=== PATIENT | female | born 1955 | race Caucasian/White ===

== ENCOUNTER 2018-11-19 15:11 | Inpatient (IN) | payer MEDICARE, BC ==
[~2018-11-19] VITALS: Ht 147.3 cm; Wt 69.0 kg
--- OUTSIDE RECORDS SUMMARY | 2018-11-19 15:15 | XMS REPORT ---
Author Author [facility] Address Unknown Phone Unavailable Care Team Providers Care Crate Opener Name Role Phone Unavailable Unavailable Payers Payer Name Policy Type Policy Number Effective Date Expiration Date Problems This patient has no known problems. Allergies, Adverse Reactions, Alerts Allergy Name Allergy Type Status Severity Reaction(s) Onset Date Inactive Date Treating Clinician Comments No Known Allergies DA Active U 2018-06-30 00:00:00 Salicylates DA Active MN 2017-12-05 00:00:00 NSAIDS (Non-Steroidal Anti-Inflamma DA Active MN 2017-12-05 00:00:00 aspirin DA Active MN 2017-12-05 00:00:00 Pyrazoles DA Active U 2017-12-04 00:00:00 Medications This patient has no known medications. Results Test Description Test Time Test Comments Text Results Atomic Results Result Comments INTERVERTEBRAL DISC 2018-07-05 14:17:00 RUN DATE: 07/05/18 [place] - Lab PAGE 1 RUN TIME: 1418 Specimen Inquiry RUN USER: INTERFACE PATIENT: CHARY DOZIER LOC: ERIN #: [id number] AGE/SX: 63/F [facility] RE07[facility]03[facility]18[facility] DR: North Salas MD : 51 BED: A DIS: 07/04/18 STATUS: DIS Minal TLOC: SPEC #: [id number] RECD: 07/04/18 STATUS: HUNTER REQ #: [id number] NAGA: 07/03/18 DR: North Salas MD ENTERED: 07/04/18 SP TYPE: INT DISC OTHR DR: Mj Vizcarra MD ORDERED: GROSS COPIES TO: Mj Vizcarra MD [address] [place] [address] North Salas MD [address] [address] PROCEDURES: GROSS (07/05/18-1322) TISSUES: CERVICAL VERTEBRA, NOS - DISC CLINICAL HISTORY COLLECTION DATE: 07/03/2018 C3-4; C4-5; C5-6 SPONDYLOSIS AND SPINAL STENOSIS FINAL DIAGNOSIS Intervertebral disc, C3-C4, C4-C5, C5-C6, discectomy: FIBROCARTILAGINOUS DEGENERATION NO DISCITIS, VASCULAR PROLIFERATION OR MALIGNANCY IDENTIFIED FA/greer D [id number], 45580 MACROSCOPIC The specimen is received in formalin, labeled with the patient's name, identified as "cervical disc", and consists of multiple portions of ross white soft and rubbery tissue and minute portions of bone measuring 3.5 X 2.0 X 1.0 cm in aggregate. Rope Twisting Machine Operator of section is submitted in a single cassette after light decalcification. CONTINUED ON NEXT PAGE RUN DATE: 07/05/18 [facility] PAGE 2 RUN TIME: 1417 Specimen Inquiry RUN USER: INTERFACE SPEC #: [id number] PATIENT: CHARY DOZIER #[id number] (Continued) MACROSCOPIC (Continued) GROSS PERFORMED AT [facility] [address] [facility], [place] [address] [phone])[phone] PERFORMING SITE Diagnosis performed at: [facility] [address] [facility], [place] [address] --------- Signed SIGNATURE ON FILE Joseph Hightower MD 07/05/18 1417 END OF REPORT - XR C-SPINE 2-3 VIEWS 2018-07-04 13:23:00 FAX: Mj Newell MD [phone] [place]: St: DIS FAX: Y North Salas MD [phone] Name: CHARY DOZIER [facility] : 1955 Age/S: 63/F [address] [facility] Unit #: [id number] Loc: V.5010 [place] [address] Phys: North Salas MD Acct: [id number] Dis Date: [id number] Status: DIS IN PHONE #: [phone] Exam Date: 07/04/2018 1013 FAX #: [phone] Reason: Status post fusion EXAMS: CPT CODE: [id number] XR C-SPINE 2-3 VIEWS 03574 HISTORY: Post cervical fusion. COMPARISON: None available. Cervical spine series, 4 views. Cervical fusion from C3 through C6 with metallic internal fixation plate and bone. C5 and C6 are partially obscured by patient's shoulder. Prevertebral soft tissue swelling. Drainage catheter seen anteriorly. Vertebral body heights are maintained. Narrowed uncovertebral joints. Lung apices are clear. IMPRESSION: Cervical fusion in good anatomic alignment from C3 through C6. Vertebral body heights are maintained. at 1323 Reported and signed by: Irving Chawla M.D. CC: Mj Vizcarra MD; North Salas MD Technologist: RT KIM(Consuelo) Trnscrd Date/Time/By: 07/04/2018 (4188) : By: [email or web address] Orig Print D/T: S: 07/04/2018 (5274) PAGE 1 Signed Report PROTHROMBIN TIME 2018-06-30 15:35:00 PROTHROMBIN TIME PATIENT (test code=PTP) 11.3 seconds 9.0-14.0 INTERNATIONAL NORMAL RATIO (test code=INR) 0.9 0.8-1.2 The therapeutic range for oral anticoagulant therapy formost indications is an international normalized ratio (INR)of between 2.0 and 3.0. The recommended therapeutic INRrange for various clinical situations is listed below: Clinical Situation INR range Pulmonary e mbolism treatment (2.0-3.0)Venous thrombosis treatmentVenous thrombosis prophylaxis (high risk surgery)Prevention of systemic embolism from: Acute myocardial infarction Valvular heart disease Atrial fibrillation Mechanical prosthetic heart valves (2.5-3.5) THROMBOPLASTIN TIME [id number] 15:35:00* Test Item Value Reference Range Comments THROMBOPLASTIN TIME PARTIAL (test code=PTT) 32.3 seconds 25.0-36.5 BASIC METABOLIC [id number] 15:23:00* Test Item Value Reference Range Comments SODIUM (test code=NA) 140 mmol/L 136-145 POTASSIUM (test code=K) 4.4 mmol/L 3.5-5.1 CHLORIDE (test code=CL) 108.0 mmol/L 98-107 CARBON DIOXIDE (test code=CO2) 27.0 mmol/L 21-32 ANION GAP (test code=GAP) 9.4 10-20 GLUCOSE (test code=GLU) 94 mg/dL 74-106 BLOOD UREA NITROGEN (test code=BUN) 17 mg/dL 7-18 GLOMERULAR FILTRATION RATE (test code=GFR) > 60 mL/min >=60 Estimated GFR by using Modified MDRD formula.Chronic kidney disease is defined as either kidney damageor GFR <60 mL/min/1.73 m2 for >3 months. CREATININE (test code=CREAT) 0.80 mg/dL 0.55-1.02 Note change in reference range due to change in reagent. BUN/CREATININE RATIO (test code=BUN/CREA) 22.4 10-20 CALCIUM (test code=CA) 9.3 mg/dL 8.5-10.1 CBC W/AUTO [id number] 15:09:00* Test Item Value Reference Range Comments WHITE BLOOD CELL (test code=WBC) 9.4 K/mm3 4.5-12.5 RED BLOOD CELL (test code=RBC) 4.71 mill/mm3 3.7-5.2 HEMOGLOBIN (test code=HGB) 13.7 gram/dL 11.5-15.5 HEMATOCRIT (test code=HCT) 44.3 % 36.0-46.0 MEAN CELL VOLUME (test code=MCV) 94.1 fL 80-98 MEAN CELL HGB (test code=MCH) 29.1 picogram 27.0-33.0 MEAN CELL HGB CONCETRATION (test code=MCHC) 30.9 gram/dL 33.0-36.0 RED CELL DISTRIBUTION WIDTH (test code=RDW) 14.3 % 11.6-16.2 RED CELL DISTRIBUTION WIDTH SD (test code=RDW-SD) 49.7 fL 37.0-51.0 PLATELET COUNT (test code=PLT) 388 K/mm3 150-450 MEAN PLATELET VOLUME (test code=MPV) 10.3 fL 6.7-11.0 NEUTROPHIL % (test code=NT%) 55.9 % 39.0-69.0 IMMATURE GRANULOCYTE % (test code=IG%) 0.3 % 0.0-5.0 LYMPHOCYTE % (test code=LY%) 30.8 % 25.0-55.0 MONOCYTE % (test code=MO%) 9.3 % 0.0-10.0 EOSINOPHIL % (test code=EO%) 2.8 % 0.0-5.0 BASOPHIL % (test code=BA%) 0.9 % 0.0-1.0 NUCLEATED RBC % (test code=NRBC%) 0.0 % 0-0 NEUTROPHIL # (test code=NT#) 5.24 K/mm3 1.8-7.7 IMMATURE GRANULOCYTE # (test code=IG#) 0.03 x10 3/uL 0-0.03 LYMPHOCYTE # (test code=LY#) 2.88 K/mm3 1.0-5.0 MONOCYTE # (test code=MO#) 0.87 K/mm3 0-0.8 EOSINOPHIL # (test code=EO#) 0.26 K/mm3 0.0-0.5 BASOPHIL # (test code=BA#) 0.08 K/mm3 0.0-0.2 NUCLEATED RBC # (test code=NRBC#) 0.00 K/mm3 0.0-0.1 MANUAL DIFF REQUIRED (test code=MDIFF) NO - XR CHEST 2 [id number] 15:03:00 FAX: Mj Newell MD [phone] [place]: O St: PRE FAX: North Schwartz MD [phone] Name: CHARY DOZIER [facility] : 1955 Age/S: 63/F [address] Unit #: [id number] Loc: RACHEL Murillo [address] Phys: North Salas MD Acct: [id number] Dis Date: Status: PRE IN PHONE #: [phone] Exam Date: 06/30/2018 1433 FAX #: [phone] Reason: PRE OP EXAMS: CPT CODE: [id number] XR CHEST 2 V 42125 EXAM: Chest x-ray, 2 views; INFORMATION: Cervical spondylosis and spinal stenosis; preop; FINDINGS: Minimal platelike atelectasis above the left costophrenic angle; otherwise, lungs are clear; no infiltrates, no edema; no effusions, no pneumothorax. Unremarkable cardiac mediastinal silhouette. There is significant S-shaped scoliosis of the thoracolumbar spine. Small screws are seen in the left proximal humerus, probably secondary to rotator cuff surgery. IMPRESSION: No evidence of active cardiopulmonary disease. at 1503 Reported and signed by: Kaden Vaughn M.D. CC: Mj Vizcarra MD; North Weiss MD Technologist: Lilia Dickson Trnscrd Date/Time/By: 06/30/2018 (1500) : By: CarolGRW Orig Print D/T: S: 06/30/2018 (0106) PAGE 1 Signed Report
[2018-11-19] MEDS ORDERED: SODIUM CHLORIDE 0.9% 1000ML 2,000 ML ONE (15:22)
[2018-11-19] MEDS ORDERED: ONDANSETRON HCL INJ 2MG/ML 2ML 2 MG/ML VIAL ONE (15:23)
[2018-11-19 15:33] LABS: BASOPHILS # (AUTO) 0.1 (0.0-0.1); BASOPHILS % 0.4 % (0.0-1.0); EOSINOPHILS # (AUTO) 0.1 (0.0-0.4); EOSINOPHILS % 0.8 % (0.0-6.0); HEMATOCRIT 38.3 % (34.2-44.1); HEMOGLOBIN 12.6 g/dL (12.0-16.0); LYMPHOCYTES # (AUTO) 2.4 (1.0-3.2); LYMPHOCYTES % 13.9 % (18.0-39.1); MEAN CORPUSCULAR HEMOGLOBIN 28.8 pg (28-32); MEAN CORPUSCULAR HGB CONC 32.9 g/dL (31-35); MEAN CORPUSCULAR VOLUME 87.6 fL (81-99); MONOCYTES # (AUTO) 1.1 (0.2-0.8); MONOCYTES % 6.5 % (4.4-11.3); NEUTROPHILS # (AUTO) 13.5 (2.1-6.9); NEUTROPHILS % 77.7 % (38.7-80.0); PLATELET COUNT 320 x10e3/uL (140-360); RED BLOOD COUNT 4.37 x10e6/uL (3.6-5.1); RED CELL DISTRIBUTION WIDTH 14.6 % (11.7-14.4)
[2018-11-19] MEDS ORDERED: SODIUM CHLORIDE 0.9% 1000ML 1,000 ML ONE (15:49)
[2018-11-19 15:54] LABS: ALBUMIN 3.4 g/dL (3.5-5.0); ANION GAP 16.3 mmol/L (8-16); CALCIUM 9.2 mg/dL (8.4-10.2); CREATININE, SERUM 2.86 mg/dL (0.57-1.11); MAGNESIUM 2.1 MG/DL (1.3-2.1); PHOSPHORUS 5.3 MG/DL (2.3-4.7); POTASSIUM 4.3 mmol/L (3.5-5.1)
[2018-11-19] MEDS ORDERED: SODIUM CHLORIDE 0.9% 1000ML 1,000 ML IV ONE ×2 (16:00→19:15)
--- NOTE | 2018-11-19 16:08 | NUR ---
NOTIFIED DR DONALDSON BP 70/38 MANUAL, P 90 AFTER 3L NS BOLUS. VERBAL ORDER RECEIVED FOR STAT ECHO.
--- NOTE | 2018-11-19 16:10 | NUR ---
NOTIFIED HEALTH ADMINISTRATOR TO PAGE ULTRASOUND FOR STAT ECHO.
[2018-11-19 16:14] LABS: THYROID STIMULATING HORMONE 0.02 uIU/mL (0.350-4.940)
--- NOTE | 2018-11-19 16:49 | Diagnostic Imaging Report ---
History: Syncope Comparison studies: Most recent head CT on 12 06/23/2009 Technique: Axial images were obtained from the skull base to the vertex. Coronal and sagittal reconstructions obtained from the axial data. Dose modulation, iterative reconstruction, and/or weight based adjustment of the mA/kV was utilized to reduce the radiation dose to as low as reasonably achievable. Intravenous contrast: None Findings: Scalp/skull: No abnormalities. No fractures, blastic or lytic lesions. Extra-axial spaces: No masses. No fluid collections. Brain sulci: Appropriate for age. Ventricles: Normal in size and configuration. No hydrocephalus. Parenchyma: No abnormal densities. No masses, hemorrhage, acute or chronic cortical vascular insults. Sellar/suprasellar region: No abnormalities Craniocervical junction: Patent foramen magnum. No Chiari one malformation. IMPRESSION: No abnormalities. No changes compared to the previous head CT on 06/23/2009 Signed by: Dr. Alok Young M.D. on 11/19/2018 4:45 PM
[2018-11-19] MEDS ORDERED: SODIUM CHLORIDE 0.9% 1000ML 1,000 ML IV SCH ×4 (17:00→19:00)
[2018-11-19] MEDS ORDERED: ONDANSETRON HCL INJ 2MG/ML 2ML 2 MG/ML VIAL IV STA (17:04)
--- NOTE | 2018-11-19 17:07 | NUR ---
ECHO AT BEDSIDE PER MD ORDER
--- NOTE | 2018-11-19 17:13 | Diagnostic Imaging Report ---
EXAMINATION: CT of the abdomen and pelvis without contrast. TECHNIQUE: Spiral CT images of the abdomen and pelvis were performed from the lung bases to the lesser trochanters. No intravenous contrast was given due to decreased GFR. Coronal and sagittal reformatted images were obtained. COMPARISON: None. CLINICAL HISTORY:Fall, syncope, abdominal pain DISCUSSION: ABSENCE OF INTRAVENOUS CONTRAST DECREASES SENSITIVITY FOR DETECTION OF FOCAL LESIONS AND VASCULAR PATHOLOGY. ABDOMEN/PELVIS: LOWER THORAX: Linear opacities in the lingula and bilateral lower lobes, which represents of segmental atelectasis or scarring. No consolidation or effusion. Mildly patulous distal esophagus. HEPATOBILIARY: No focal hepatic lesions. No intra or extrahepatic biliary ductal dilation. GALLBLADDER: No radio-opaque stones or sludge. No wall thickening. SPLEEN: No splenomegaly. PANCREAS: No focal masses or ductal dilatation. ADRENALS: No adrenal nodules. KIDNEYS/URETERS: No hydronephrosis, stones, or contour abnormalities. No significant perinephric stranding. PELVIC ORGANS/BLADDER: Bladder is unremarkable. Uterus is absent. No adnexal masses. Pelvic phleboliths. PERITONEUM/RETROPERITONEUM: No free air or fluid. LYMPH NODES: No intra-abdominal,retroperitoneal, pelvic or inguinal lymphadenopathy. VESSELS: Minimal atherosclerotic calcification of the abdominal aorta. GI TRACT: No bowel dilation or evidence of obstruction. No pericolonic inflammatory changes. Postoperative changes in the stomach and proximal small bowel, likely reflecting prior gastric bypass surgery. BONES AND SOFT TISSUES: No aggressive lytic lesions. Moderate multilevel degenerative disc changes in the lower thoracic and lumbosacral spine, with levoscoliosis. Facet hypertrophy L5-S1. Small fat-containing left inguinal hernia. Soft tissues are otherwise unremarkable. IMPRESSION: 1. No acute abdominopelvic abnormalities in this noncontrast exam. No bowel dilation or evidence of obstruction. No intra-abdominal or pelvic free air or free fluid. Signed by: Dr. Omari Gamboa M.D. on 11/19/2018 5:10 PM
[2018-11-19] MEDS ORDERED: ONDANSETRON HCL INJ 2MG/ML 2ML 2 MG/ML VIAL IV ONE (17:15)
[2018-11-19] MEDS ORDERED: ONDANSETRON HCL INJ 2MG/ML 2ML 2 MG/ML VIAL IV PRN (18:15)
[2018-11-19] MEDS ORDERED: ASPIRIN 81 MG CHEW TAB PO ONE (18:15)
[2018-11-19] MEDS ORDERED: SODIUM CHLORIDE FLUSH 10 ML SYR INJ PRN (18:15)
[2018-11-19 18:18] LABS: BILIRUBIN,URINE NEGATIVE (NEGATIVE); CLARITY,URINE SL CLOUDY (CLEAR); COLOR,URINE YELLOW (YELLOW); KETONES,URINE NEGATIVE (NEGATIVE); LEUKOCYTE ESTERASE ,URINE NEGATIVE (NEGATIVE); NITRITE,URINE NEGATIVE (NEGATIVE); PROTEIN,URINE DIPSTICK NEGATIVE (NEGATIVE); URINE UROBILINOGEN 0.2 mg/dL (0.2 - 1)
--- NOTE | 2018-11-19 18:20 | NUR ---
PT GCS 15 WITH SKIN W/D, MUCOSA PINK/MOIST. +URINE OUTPT, IVF RUNNING ON PUMP, XRAY DONE, AAOX4. SR NO ECOTOPY. NO COMPLAINTS. MD AWARE OF VS.
--- NOTE | 2018-11-19 18:28 | Diagnostic Imaging Report ---
Examination: Single AP view of the chest. COMPARISON: None. INDICATION: Passing out, fall, shortness of breath IMPRESSION: 1. Lines and Tubes: None 2. Lungs are grossly clear. No consolidation or effusion. 3. Cardiomediastinal silhouette is normal. Pulmonary vasculature is normal. 4. No acute bony abnormalities. Signed by: Dr. Omari Gamboa M.D. on 11/19/2018 6:25 PM
--- NOTE | 2018-11-19 18:39 | NUR ---
notified hs of pt status.
[2018-11-19 18:48] LABS: AMORPHOUS SEDIMENT,URINE FEW (FEW); BACTERIA,URINE FEW /HPF; EPITHELIAL CELLS,URINE FEW /LPF; MUCUS,URINE FEW (RARE); RBC,URINE 0-5 /HPF (0-5); WBC,URINE (MAN) 0-5 /HPF (0-5)
--- NOTE | 2018-11-19 18:59 | NUR ---
REPORT TO CONRADO, ;)
[2018-11-19 19:16] LABS: AMPHETAMINES SCREEN,URINE NEGATIVE (NEGATIVE); BENZODIAZEPINES SCREEN,URINE POSITIVE (NEGATIVE); PHENCYCLIDINE SCREEN,URINE NEGATIVE (NEGATIVE)
[2018-11-19] MEDS: PIPER-TAZ 3.375 GM 50 ML IV SCH (20:39)
[2018-11-19] MEDS: SODIUM CHLORIDE 0.9% 1000ML 1,000 ML IV SCH (20:40)
[2018-11-19] MEDS ORDERED: CYCLOBENZAPRINE10 MG PO (22:28)
[2018-11-19] MEDS ORDERED: GABAPENTIN400 MG PO (22:28)
[2018-11-19] MEDS ORDERED: HYDROCODON-ACE1 EAC9 PO (22:28)
[2018-11-19] MEDS ORDERED: LEVOTHYROXINE100 MCG PO (22:28)
[2018-11-19] MEDS ORDERED: LISINOPRIL20 MG PO (22:28)
[2018-11-19] MEDS ORDERED: MOTRIN800 MG PO (22:28)
[2018-11-19 22:30] VITALS: BP 100/59
--- NOTE | 2018-11-19 22:30 | NUR ---
RECEIVED PATIENT FROM ER. PATIENT IS AAOX3. RESP EVEN AND UNLABORED. NO ACUTE DISTRESS NOTED. TELE IN PLACE. MAIER IN PLACE, CLEAR AND YELLOW URINE NOTED. ORIENTED PATIENT TO ROOM. CALL LIGHT WITHIN REACH. BED LOW/LOCKED. CONTINUE TO MONITOR CLOSELY
[2018-11-19 22:42] VITALS: BP 100/59
[2018-11-20] VITALS (8 sets, daily range): BP systolic 94–122; BP diastolic 40–59
[2018-11-20] MEDS: SODIUM CHLORIDE 0.9% 1000ML 1,000 ML IV SCH ×3 (02:07→17:14)
[2018-11-20] MEDS: PIPER-TAZ 3.375 GM 50 ML IV SCH ×3 (04:13→20:16)
--- NOTE | 2018-11-20 05:50 | NUR ---
SPOKE TO DR GARCIA TO RESUME HOME MED AND PATIENT C/O PAIN TO HEAD AND ABDOMEN. NEW ORDER RECEIVED TO RESUME GABAPENTIN ONLY AND TYLENOL FOR PAIN
[2018-11-20 06:02] LABS: BASOPHILS % 0.4 % (0.0-1.0); EOSINOPHILS # (AUTO) 0.1 (0.0-0.4); EOSINOPHILS % 1.1 % (0.0-6.0); HEMATOCRIT 31.1 % (34.2-44.1); HEMOGLOBIN 9.9 g/dL (12.0-16.0); LYMPHOCYTES # (AUTO) 1.3 (1.0-3.2); LYMPHOCYTES % 11.2 % (18.0-39.1); MEAN CORPUSCULAR HEMOGLOBIN 28.8 pg (28-32); MEAN CORPUSCULAR HGB CONC 31.8 g/dL (31-35); MEAN CORPUSCULAR VOLUME 90.4 fL (81-99); MONOCYTES # (AUTO) 0.7 (0.2-0.8); MONOCYTES % 6.2 % (4.4-11.3); NEUTROPHILS % 80.5 % (38.7-80.0); PLATELET COUNT 241 x10e3/uL (140-360); RED BLOOD COUNT 3.44 x10e6/uL (3.6-5.1); RED CELL DISTRIBUTION WIDTH 14.8 % (11.7-14.4)
--- NOTE | 2018-11-20 06:13 | Diagnostic Imaging Report ---
EXAMINATION: CHEST SINGLE (PORTABLE) COMPARISON: Chest x-ray 11/19/18 INDICATION: Shortness of breath ^SOB ^[id number] ^0513 DISCUSSION: Frontal view of the chest obtained at 0538 hours. HEART AND MEDIASTINUM: The cardiomediastinal silhouette is unremarkable. LINES: None. LUNGS: Pulmonary vascular congestion and bibasilar atelectasis. PLEURA: No large effusions. No pneumothorax. BONES AND SOFT TISSUES: Stable anchors in the left humeral head. Stable degenerative changes and calcific tendinosis of the right shoulder. Fusion plate in the lower cervical spine is stable. The soft tissues are normal. IMPRESSION: Pulmonary vascular congestion and bibasilar atelectasis. Signed by: Dr. Tona Tyson MD on 11/20/2018 6:10 AM
[2018-11-20] MEDS: ACETAMINOPHEN 325 MG TAB PO PRN (06:23)
[2018-11-20] MEDS: GABAPENTIN 400 MG CAP PO SCH ×3 (06:23→20:16)
[2018-11-20 06:32] LABS: ALANINE AMINOTRANSFERASE 22 IU/L (0-55); ALBUMIN 2.5 g/dL (3.5-5.0); ALBUMIN/GLOBULIN RATIO 0.9 (0.8-2.0); ALKALINE PHOSPHATASE 68 IU/L (40-150); ANION GAP 12.4 mmol/L (8-16); BUN/CREATININE RATIO 22 (6-25); CALCIUM 8.2 mg/dL (8.4-10.2); CARBON DIOXIDE 18 mmol/L (22-29); CHLORIDE 112 mmol/L (98-107); EST GLOMERULAR FILTRATION RATE > 60 ML/MIN (60-); GLUCOSE 84 mg/dL (74-118); MAGNESIUM 1.8 MG/DL (1.3-2.1); PHOSPHORUS 2.3 MG/DL (2.3-4.7); POTASSIUM 4.4 mmol/L (3.5-5.1); SODIUM 138 mmol/L (136-145)
[2018-11-20 07:00] LABS: CREATINE KINASE MB 10.3 ng/mL (0-5.0)
--- NOTE | 2018-11-20 07:00 | NUR ---
BEDSIDE SHIFT REPORT RECEIVED FROM [facility] RN. PT DENIES NEEDS AT THIS TIME.
[2018-11-20 07:11] LABS: BLOOD UREA NITROGEN 19 mg/dL (7-26); CREATININE, SERUM 0.85 mg/dL (0.57-1.11)
[2018-11-20] MEDS ORDERED: FAMOTIDINE 20 MG/2 ML VIAL IV SCH (09:00)
--- NOTE | 2018-11-20 11:00 | NUR ---
MAIER REMOVED. PT TOLERATED. TIL 1700 TO VOID.
--- NOTE | 2018-11-20 11:06 | History and Physical ---
CHIEF COMPLAINT: "I don't feel well and I keep falling down." HISTORY OF PRESENT ILLNESS: This is a 63-year-old white woman, who presents to [facility] Emergency Room with complaints of frequent falls and not feeling well. The patient states that two days prior to admission, she began experiencing continuous diarrhea with some nausea. The patient states one day prior to admission, she began experiencing vomiting as well as unsteady gait. The patient states she fell multiple times day the day prior to admission and also on day of admission. The patient's story was corroborated by her . In the emergency room on presentation, the patient was found to have a blood pressure of 61/45, the pulse was 100. The patient also was found to have BUN and creatinine of 54 and 2.86 respectively. The patient's potassium was 4.3, serum bicarbonate 22. The patient's AST and ALT were 39 and 27 respectively. TSH was low at 0.020. The patient's urine toxicology was positive for opiates and benzodiazepines, but she does take hydrocodone as well as diazepam. The patient's urinalysis did not reveal evidence of urinary tract infection though. The patient's white blood cell count on admission was 17,400 with 77% segmenters. The patient's white blood cell count this morning is 11,100 with 80% segmenters. Also today's BUN and creatinine improved to 19 and 0.85 respectively. The patient's serum bicarbonate is low at 18. The patient's initial troponin I is normal was at 0.035, but her creatine kinase is elevated at 408. The patient states she does have issues with chronic constipation. The patient also states she has been taking ibuprofen lately for her back pain. Moreover, the patient states she increased the lisinopril 20 mg daily to twice a day for better blood pressure control. Also my office added amlodipine 5 mg daily for better blood pressure control. The patient is apparently on levothyroxine 100 mcg daily, but she was told a week ago to decrease it to 50 mcg daily. The patient was admitted for further evaluation and treatment. REVIEW OF SYSTEMS: GENERAL: Weight has been stable. No fever, chills, but she has felt very weak and she has been fallen in the last couple of days. HEENT: No headaches. No vision changes. CARDIOVASCULAR/RESPIRATORY: No chest pain, shortness of breath, or cough. GI: The patient has had diarrhea for 2 to 3 days prior to admission and vomiting started one day prior to admission. No melena or hematochezia. : No UTI symptoms. NEUROMUSCULAR: The patient complains of chronic lower back pain as well as chronic pain in her legs from restless legs syndrome and neuropathy. PAST MEDICAL HISTORY: 1. Multilevel lumbar disease. 2. Restless legs syndrome. 3. Hypothyroidism. 4. Hypertensive heart disease. 5. Depression. 6. Anxiety disorder. 7. Prediabetes. 8. Chronic constipation. PAST SURGICAL HISTORY: 1. Gastrojejunostomy (Garrett-en-Y). 2. Bilateral rotator cuff surgery. 3. Bilateral carpal tunnel surgery. 4. Hysterectomy. 5. section twice. 6. Rectocele repair. 7. Cystocele repair. FAMILY HISTORY: The patient's adult sister has type 2 diabetes mellitus, as well as dementia. SOCIAL: This woman is , lives with her . The patient is currently retired. The patient has no history of tobacco abuse. She also denies any illicit drug use. ALLERGIES: NO KNOWN DRUG ALLERGIES. MEDICATIONS: 1. Cyclobenzaprine 10 mg t.i.d. p.r.n. back spasms. 2. Gabapentin 400 mg t.i.d. 3. Hydrocodone/acetaminophen 10/325 one q.i.d. p.r.n. pain. 4. Ibuprofen 800 mg b.i.d. 5. Levothyroxine 100 mcg daily. 6. Lisinopril 20 mg b.i.d. PHYSICAL EXAMINATION: GENERAL: She is awake, alert, fluent, in no distress. VITAL SIGNS: Height 4 feet 10 inches, weight 150 pounds, BMI 31. is at bedside. Blood pressure in emergency room was 60/40, currently it is 96/40, pulse 75, respiratory rate 18, temperature 96.2, and oxygen saturation 96% on room air. INTEGUMENT: Skin is warm and dry. No pallor, jaundice, or diaphoresis. HEENT: Anicteric sclerae. Moist mucous membrane. NECK: Supple. CARDIOVASCULAR: Regular rate and rhythm with an S4 gallop. LUNGS: No rales. No rhonchi or wheezes. ABDOMEN: Obese, benign. Normal bowel sounds. Nontender. EXTREMITIES: No edema. No deformity. NEURO: Intact. DIAGNOSES: 1. Sepsis, unknown etiology. 2. Hypotension, likely secondary to sepsis and blood pressure medications. 3. Acute renal insufficiency, likely secondary to acute tubular necrosis and NSAIDs. 4. Left lower lobe pneumonia, possibly. 5. Gastroenteritis, possible. PLAN: 1. Intravenous fluids. 2. Follow renal function and electrolytes. 3. Continue intravenous antibiotics. 4. Follow blood and urine cultures. 5. We will discontinue Zhong. 6. We will discontinue NSAIDs, FELIPE inhibitor, and all sedatives. 7. We will also hold hydrocodone since the patient is experiencing opiate- induced constipation. 8. We will monitor blood pressure closely. I spent 50 minutes in the care of the patient. MD MENDY Medrano/MODL /[id number] MTDD
--- NOTE | 2018-11-20 13:00 | NUR ---
PT HAS VOIDED AT THIS TIME. PT FELT COMPLETE VOID.
[2018-11-20] MEDS ORDERED: ONDANSETRON HCL 4 MG ORAL DISINTEGRATING TAB PO PRN (14:15)
[2018-11-20] MEDS: FAMOTIDINE 20 MG TAB PO SCH (15:59)
[2018-11-20 18:28] LABS: CREATINE KINASE MB 9.5 ng/mL (0-5.0)
[2018-11-21] VITALS: BP 120/60
[2018-11-21] MEDS: SODIUM CHLORIDE 0.9% 1000ML 1,000 ML IV SCH ×2 (02:01→09:52)
--- NOTE | 2018-11-21 02:56 | NUR ---
PT'S IV TO RIGHT EJ 18G CAME OUT,CATH TIP NOTED INTACT.PRESSURE DRESSING APPLIED TO SITE.LEFT AC 18 G NOTED INTACT AND PATENT WITH IVF RUNNING PER MAR.DENIES ANY PAIN AT THIS TIME.BED IN LOW/LOCKED POSITION.CALL LIGHT WITHIN EASY REACH.
[2018-11-21 04:00] VITALS: BP 170/78
[2018-11-21] MEDS: PIPER-TAZ 3.375 GM 50 ML IV SCH (05:00)
[2018-11-21 05:07] LABS: BASOPHILS % 0.5 % (0.0-1.0); EOSINOPHILS # (AUTO) 0.3 (0.0-0.4); EOSINOPHILS % 3.6 % (0.0-6.0); HEMATOCRIT 29.6 % (34.2-44.1); HEMOGLOBIN 9.5 g/dL (12.0-16.0); LYMPHOCYTES % 23.3 % (18.0-39.1); MEAN CORPUSCULAR HEMOGLOBIN 28.7 pg (28-32); MEAN CORPUSCULAR HGB CONC 32.1 g/dL (31-35); MEAN CORPUSCULAR VOLUME 89.4 fL (81-99); MONOCYTES # (AUTO) 0.6 (0.2-0.8); MONOCYTES % 7.3 % (4.4-11.3); NEUTROPHILS # (AUTO) 5.6 (2.1-6.9); NEUTROPHILS % 64.8 % (38.7-80.0); PLATELET COUNT 248 x10e3/uL (140-360); RED BLOOD COUNT 3.31 x10e6/uL (3.6-5.1); RED CELL DISTRIBUTION WIDTH 14.8 % (11.7-14.4)
[2018-11-21 05:38] LABS: ALANINE AMINOTRANSFERASE 25 IU/L (0-55); ALBUMIN 2.7 g/dL (3.5-5.0); ALBUMIN/GLOBULIN RATIO 0.9 (0.8-2.0); ALKALINE PHOSPHATASE 64 IU/L (40-150); ANION GAP 10.7 mmol/L (8-16); BLOOD UREA NITROGEN 5 mg/dL (7-26); BUN/CREATININE RATIO 8 (6-25); CALCIUM 8.6 mg/dL (8.4-10.2); CARBON DIOXIDE 22 mmol/L (22-29); CHLORIDE 111 mmol/L (98-107); EST GLOMERULAR FILTRATION RATE > 60 ML/MIN (60-); GLUCOSE 85 mg/dL (74-118); MAGNESIUM 1.5 MG/DL (1.3-2.1); POTASSIUM 3.7 mmol/L (3.5-5.1); SODIUM 140 mmol/L (136-145)
[2018-11-21] MEDS: ACETAMINOPHEN 325 MG TAB PO PRN ×2 (05:45→07:50)
--- NOTE | 2018-11-21 06:06 | Diagnostic Imaging Report ---
Examination: Single AP view of the chest. COMPARISON: 11/20/2018 INDICATION: Evaluate for pneumonia DISCUSSION: Lines/tubes: None. Lungs: Improved aeration of the left lower lung. Central venous congestion. Pleura: No pleural effusion or pneumothorax. Heart and mediastinum: The heart and the mediastinum are unremarkable. Bones and soft tissues: No acute bony abnormalities. IMPRESSION: Decreased atelectasis left lower lung. Signed by: Dr. Daniel Tovar M.D. on 11/21/2018 6:02 AM
--- NOTE | 2018-11-21 07:00 | NUR ---
BEDSIDE SHIFT REPORT RECEIVED FROM NIGHT RN. PT DENIES NEEDS AT THIS TIME.
--- NOTE | 2018-11-21 07:07 | NUR ---
REPORT GIVEN TO ONCOMING NURSE.WALKING ROUNDS MADE.PT RESTING IN BED WITH NO S/S OF DISTRESS.
[2018-11-21] MEDS: FAMOTIDINE 20 MG TAB PO SCH (07:50)
[2018-11-21 07:52] VITALS: BP 114/60
[2018-11-21] MEDS: GABAPENTIN 400 MG CAP PO SCH (08:04)
[2018-11-21 09:02] VITALS: BP 114/60
[2018-11-21] MEDS ORDERED: MAGNESIUM SULFATE 2GM/50ML 50 ML IV ONE (09:15)
--- NOTE | 2018-11-21 10:32 | Discharge Summary ---
ADMITTING DIAGNOSES: 1. Sepsis. 2. Acute renal insufficiency, likely secondary to acute tubular necrosis and NSAIDs. 3. Hypotension, likely secondary to sepsis and blood pressure medications. 4. Left lower lobe pneumonia, possibly. 5. Gastroenteritis, possibly. DISCHARGE DIAGNOSES: 1. Sepsis secondary to gastroenteritis, resolved. 2. Left lower lobe pneumonia, resolved. 3. Hypotension, resolved. 4. Acute renal insufficiency secondary to NSAIDs and acute tubular necrosis, resolved. 5. Hypertensive heart disease. 6. FELIPE inhibitor induced cough. HOSPITAL COURSE: This is a 63-year-old white woman, who was initially admitted to [facility] with diagnosis of sepsis as well as acute renal insufficiency. It was felt that her acute renal insufficiency was caused by acute tubular necrosis and likely NSAID use. The patient's BUN and creatinine on admission were 54 and 2.86 respectively. Her lactic acid level was slightly elevated at 18.3 on admission also. On day of discharge, the patient's BUN and creatinine were 5 and 0.6 respectively. Also on admission, the patient's white blood cell count was 17,400 with 77% segmenters. On day of discharge, white blood cell count was 8600 with 64% segmenters. The patient's renal function improved with intravenous fluids. The patient's sepsis responded to intravenous fluids as well as intravenous piperacillin/tazobactam. Her brief hospitalization was unremarkable. During this hospitalization, the patient did have a CT of the abdomen and pelvis, which was unremarkable, but it did reveal linear opacities in the lingula and bilateral lower lobes. The patient had subsequent chest x-rays. They did reveal findings consistent with left lower lobe atelectasis. It was felt the patient perhaps had sepsis secondary to left lower lobe pneumonia in combination with severe gastroenteritis. Regardless, the patient improved clinically with supportive care along with intravenous fluids and antibiotics. CONDITION ON DISCHARGE: Stable. DISCHARGE MEDICATIONS: 1. Cefuroxime 250 mg twice a day for 5 days. 2. Losartan 25 mg daily. 3. Gabapentin 400 mg t.i.d. 4. Cyclobenzaprine 10 mg t.i.d. p.r.n. back spasms. 5. Hydrocodone/acetaminophen 10/325 one q.i.d. p.r.n. pain. 6. Levothyroxine 50 mcg daily. The patient was told to stop ibuprofen and lisinopril. FOLLOWUP INSTRUCTIONS: The patient was instructed to follow up with her attending, namely myself, Dr. Mj Vizcarra within next two weeks. The patient was counseled on avoiding all NSAIDs. Also counseled the patient on using opiates judiciously namely hydrocodone since she does have history of chronic constipation. MD MENDY Medrano/MIGUELINA /[id number]
[2018-11-21] MEDS ORDERED: CEFUROXIME250 MG PO (10:50)
[2018-11-21] MEDS ORDERED: LOSARTAN POTASS25 MG (10:53)
--- NOTE | 2018-11-21 11:22 | NUR ---
PT WALKED BY THIS NURSE TO PRIVATE TRUCK DRIVEN BY SPOUSE. PT TOLERATED. PT DENIED FURTHER NEEDS.
[2018-11-21 11:30] VITALS: BP 146/73
== END 2018-11-21 11:20 | disposition home or self-care (01) | DRG 871 ==
LOC: ER 15:11 → ERHOLD 18:36 → MED/SURG2 22:26
PROVIDERS: ADMIT Internal Medicine; ATTEND Internal Medicine
DX: A41.9 Sepsis, unspecified organism (principal); J18.9 Pneumonia, unspecified organism; N17.0 Acute kidney failure with tubular necrosis; N17.9 Acute kidney failure, unspecified; K52.9 Noninfective gastroenteritis and colitis, unspecified; I11.0 Hypertensive heart disease with heart failure; I50.9 Heart failure, unspecified; N14.0 Analgesic nephropathy; R05 Cough; T46.4X5A Adverse effect of angiotensin-converting-enzyme inhibitors, initial encounter
CPT/HCPCS: 36415; 51700; 70450; 71045; 74176; 80053; 80307; 81001; 82550; 82553; 82948; 83605; 83690; 83735; 84100; 84443; 84484; 85025; 87040; 87086; 93005; 93306; 99284; J2405; J2543; J3475; J7030

== ENCOUNTER 2019-02-21 10:55 | Outpatient (RCR) | payer MEDICARE, BC ==
[~2019-02-21 10:55] MED LIST: CEFUROXIME250 MG PO; CYCLOBENZAPRINE10 MG PO; GABAPENTIN400 MG PO; HYDROCODON-ACE1 EAC9 PO; LEVOTHYROXINE100 MCG PO; LISINOPRIL20 MG PO; LOSARTAN POTASS25 MG; MOTRIN800 MG PO
== END 2019-02-26 ==
LOC: PT 10:55
PROVIDERS: ATTEND Specialist
DX: M16.12 Unilateral primary osteoarthritis, left hip (principal); M70.62 Trochanteric bursitis, left hip; M62.81 Muscle weakness (generalized); R26.2 Difficulty in walking, not elsewhere classified

== ENCOUNTER 2020-01-05 15:45 | Emergency (ER) | payer MEDICARE, BC, OTHER ==
[~2020-01-05] VITALS: Ht 147.3 cm; Wt 68.9 kg
--- OUTSIDE RECORDS SUMMARY | 2020-01-05 16:02 | XMS REPORT | Continuity of Care Document ---
Author Author [facility] Organization [facility] Address [address] [place] [address] Phone Unavailable Care Team Providers Care Gas Regulator Repairer Name Role Phone DAXA VIZCARRA MD PCP DAXA VIZCARRA Attphys Unavailable DAXA VIZCARRA Admphys Unavailable Payers Payer Name Policy Type Policy Number Effective Date Expiration Date S ource Medicare A & B [id number] 2017 00:00:00 [facility] [id number] [facility] Problems Condition Name Condition Details Condition Category Status Onset Date Resolution Date Last Treatment Date Treating Clinician Comments Source Acute renal failure Acute renal failure Problem Active [facility] Moderate dehydration Dehydration, moderate Problem Active [facility] Allergies, Adverse Reactions, Alerts Allergy Name Allergy Type Status Severity Reaction(s) Onset Date Inacti ve Date Treating Clinician Comments Source No Known Allergies DA Active U 2018-06-30 00:00:00 [facility] Salicylates [place] Active [place] 2017-12-05 00:00:00 [facility] NSAIDS (Non-Steroidal Anti-Inflamma DA Active [place] 9 00:00:00 [facility] aspirin DA Active [place] 2017-12-05 00:00:00 [facility] Pyrazoles DA Active U 2017-12-04 00:00:00 [facility] Medications Ordered Medication Name Filled Medication Name Start Date Stop Da te Current Medication? Ordering Clinician Indication Dosage Frequency Signature (SIG) Comments Components Source Cefuroxime Axetil (Cefuroxime) 250 Mg Tablet Cefuroxim e Axetil (Cefuroxime) 250 Mg Tablet Yes 250 Every [address] [facility] Cyclobenzaprine Hcl 10 Mg Tablet Cyclobenzaprine Hcl 10 Mg Tablet Yes 10 Three Times A Day as needed for Muscle Spasms [facility] Gabapentin 400 Mg Capsule Gabapentin 400 Mg Capsule Yes 400 Three Times A Day [facility] Hydrocodone Bit/Acetaminophen (Hydrocodon-Acetaminophn 10-325) 1 Each Tablet Hydrocodone Bit/Acetaminophen (Hydrocodon-Acetaminophn 10-325) 1 Each Tablet Yes 1 Four Times Daily as needed for M oderate Pain (4-6) [facility] Levothyroxine Sodium 100 Mcg Tablet Levothyroxine Sodium 100 Mcg Tabl et Yes 50 Daily [facility] Losartan Potassium 25 Mg Tablet Losartan Potassium 25 Mg Tablet Yes [facility] Ibuprofen (Motrin) 800 Mg Tab, 800 Mg Oral Ibuprofen ( Motrin) 800 Mg Tab, 800 Mg Oral 2018-11-21 00:00:00 No 800 Twic e A Day as needed for Mild Pain (1- 3) Or Fever>100.8 [facility] Lisinopril (Prinavil / Zestril) 20 Mg Tablet, 20 Mg Or al Lisinopril (Prinavil / Zestril) 20 Mg Tablet, 20 Mg Oral 2018-11-21 00:00:00 No 20 Daily [facility] Procedures Procedure Date / Time Performed Performing Clinician [facility] e CT of abdomen and pelvis without contrast 2018-11-19 00:00:0 0 ZORAIDA DONALDSON [facility] Computed tomography of brain without radiopaque contrast 201 02-02-23 00:00:00 ZORAIDA DONALDSON [facility] Encounters Start Date/Time End Date/Time [facility] ID Source 2019-02-21 10:55:00 2019-02-26 23:59:00 Discharged Recurring [facility] [id number] [facility] 2018-11-19 18:36:00 2018-11-21 11:20:00 Discharged Inpatient 1 DAXA VIZCARRA [facility] [id number] [facility] Results Test Description Test Time Test Comments Results Result Comments Source CHEST 2 VIEWS 2019-06-01 13:37:00 [facility] [address] [address] Patient Name: CHARY DOZIER MR #: [id number] : 1955 Age/Sex: 64/F Req #: [id number] Adm Physician: Ordered by: DAXA VIZCARRA MD Report #: [id number] Location: [facility] Room/Bed: Procedure: [id number] DX/CHEST 2 VIEWS Exam Date: 06/01/19 Exam Time: 1215 REPORT STATUS: Signed EXAMINATION: CHEST 2 VIEWS INDICATION: Bronchitis COMPARISON: Chest radiograph 11/21/2018 FINDINGS: LINES/TUBES:None LUNGS:The lungs are well-inflated. No focal consolidation or pulmonary edema. PLEURA:No pleural effusion or p neumothorax. MEDIASTINUM:The cardiomediastinal silhouette appears normal in size and shape. BONES/SOFT TISSUES:No acute osseous injury. Metallic anchors at the left proximal humerus. Partially visualized cervical spine fusion hardware. ABDOMEN:No free air under the diaphragm. IMPRESSION: No focal pneumonia or pulmonary edema. Signed by: Mateusz Latif MD on 06/01/2019 1:38 PM Dictated By: MATEUSZ LATIF MD [id number] Transcribed By: NORRIS on 06/01/19 8590 COPY TO: DAXA VIZCARRA MD Blood Culture 2018-11-24 18:57:00 Test Item Blood Culture (test code = 95747058) NO GROWTH AFTER 5 DAYS, FINAL REPORT [facility] Orhsda7252-53-63 06:01:00* Test Item Value Reference Range Interpretation Comments Creatine Kinase (test code = 2157-6) 238 29-168 H [facility]Creat[facility] Kpsszh9590-54-75 06:01:00* Test Item Value Reference Range Interpretation Comments Creatine Kinase (test code = 2157-6) 238 29-168 H [facility] CenterCHEST SINGLE (PORTABLE)2018-11-21 06:01:00 [facility] [address] [address] Patient Name: CHARY DOZIER MR #: [id number] : 1955 Age/Sex: 63/F Req #: [id number] Adm Physician: DAXA VIZCARRA MD Ordered by: DAXA VIZCARRA MD Report #: [id number] Location: MED/SURG2 Room/Bed: [facility] Procedure: [id number] DX/ CHEST SINGLE (PORTABLE) Exam Date: 11/21/18 Exam Kee e: 0545 REPORT STATUS: Signed Ex amination: Single AP view of the chest. COMPARISON: 11/20/2018 INDICATI ON: Evaluate for pneumonia DISCUSSION: Lines/tubes: None. L ungs: Improved aeration of the left lower lung. Central venous congestion. Pleura: No pleural effusion or pneumothorax. Heart and mediastinum: The heart and the mediastinum are unremarkable. Bones and soft tissues: No acu te bony abnormalities. IMPRESSION: Decreased atelectasis left lo wer lung. Signed by: Dr. Meena Caputo M.D. on 11/21/2018 6:02 AM D ictated By: MEENA CAPUTO MD 1 COPY TO: DAXA JIANG OD, MD Sodium Wtsyx8394-95-45 05:40:00* Test Item Value Reference Range Interpretation Comments Sodium Level (test code = 2951-2) 140 136-145 [facility]Pot[facility] Rxhoi6170-53-81 05:40:00* Test Item Value Reference Range Interpretation Comments Potassium Level (test code = 2823-3) 3.7 3.5-5.1 [facility] CenterChloride Scstl2387-76-00 05:40:00* Test Item Value Reference Range Interpretation Comments Chloride Level (test code = 2075-0) 111 98-107 H [facility] CenterCarbon Dioxide Rdmmx7541-77-15 05:40:00* Test Item Value Reference Range Interpretation Comments Carbon Dioxide Level (test code = 2028-9) 22 22-29 [facility] CenterAnion Eia3319-90-47 05:40:00* Test Item Value Reference Range Interpretation Comments Anion Gap (test code = 95089-5) 10.7 8-16 [facility] CenterBlood Urea Igsxovge8416-94-08 05:40:00* Test Item Value Reference Range Interpretation Comments Blood Urea Nitrogen (test code = 3094-0) 5 7-26 L [facility] CenterCreatinine2019-06-25 05:40:00* Test Item Value Reference Range Interpretation Comments Creatinine (test code = 2160-0) 0.60 0.57-1.11 [facility] CenterBUN/Creatinine Fvvmk5145-38-58 05:40:00* Test Item Value Reference Range Interpretation Comments BUN/Creatinine Ratio (test code = 3097-3) 8 6-25 [facility] CenterEstimat Glomerular Filtration Rate 2018-11-21 05:40:00* Test Item Value Reference Range Interpretation Comments Estimat Glomerular Filtration Rate (test code = 444416827) > 60 >60 Ranges were taken from the National Kidney Disease Education Program and the [facility] literature.Reference ranges:60 or greater: Yadecp76-58 ( for 3 consecutive months): Chronic kidney disease 15 or less: Kidney failureUniversity Medical CenterGlucose Sbsgn2003-99-13 05:40:00* Test Item Value Reference Range Interpretation Comments Glucose Level (test code = MPE4335) 85 74-118 [facility] CenterCalcium Wopdj2801-67-21 05:40:00* Test Item Value Reference Range Interpretation Comments Calcium Level (test code = 13195-0) 8.6 8.4-10.2 [facility] CenterMagnesium Sudqr0683-86-42 05:40:00* Test Item Value Reference Range Interpretation Comments Magnesium Level (test code = 21704-4) 1.5 1.3-2.1 [facility] CenterTotal Ocjxybyth5070-98-61 05:40:00* Test Item Value Reference Range Interpretation Comments Total Bilirubin (test code = 1975-2) 0.3 0.2-1.2 [facility] CenterAspartate Amino Transf (AST/SGOT) 2018-11-21 05:40:00* Test Item Value Reference Range Interpretation Comments Aspartate Amino Transf (AST/SGOT) (test code = Aspartate Amino Transf (AST/SGOT)) 31 5-34 [facility] CenterAlanine Aminotransferase (ALT/SGPT) 2018-11-21 05:40:00* Test Item Value Reference Range Interpretation Comments Alanine Aminotransferase (ALT/SGPT) (test code = 1742-6) 25 0-55 [facility] CenterTotal Rmhbuen7412-52-54 05:40:00* Test Item Value Reference Range Interpretation Comments Total Protein (test code = 2885-2) 5.7 6.5-8.1 L [facility] CenterAlbumin2019-06-25 05:40:00* Test Item Value Reference Range Interpretation Comments Albumin (test code = 1751-7) 2.7 3.5-5.0 L [facility] CenterGlobulin2019-06-25 05:40:00* Test Item Value Reference Range Interpretation Comments Globulin (test code = 65107-2) 3.0 2.3-3.5 [facility] CenterAlbumin/Globulin Wsspw5056-88-40 05:40:00 * Test Item Value Reference Range Interpretation Comments Albumin/Globulin Ratio (test code = 1759-0) 0.9 0.8-2.0 [facility] CenterAlkaline Isqmkmcktww4497-19-37 05:40:00* Test Item Value Reference Range Interpretation Comments Alkaline Phosphatase (test code = 6768-6) 64 40-150 [facility] Jiujd1097-45-24 05:40:00* Test Item Value Reference Range Interpretation Comments Sodium Level (test code = 2951-2) 140 136-145 [facility] CenterPotassium Pfcaj3068-14-25 05:40:00* Test Item Value Reference Range Interpretation Comments Potassium Level (test code = 2823-3) 3.7 3.5-5.1 [facility] CenterChloride Nrbpc7923-32-17 05:40:00* Test Item Value Reference Range Interpretation Comments Chloride Level (test code = 2075-0) 111 98-107 H [facility] CenterCarbon Dioxide Zgrcm2210-85-69 05:40:00* Test Item Value Reference Range Interpretation Comments Carbon Dioxide Level (test code = 2028-9) 22 22-29 [facility] CenterAnion Bhi7342-21-49 05:40:00* Test Item Value Reference Range Interpretation Comments Anion Gap (test code = 89146-4) 10.7 8-16 [facility] CenterBlood Urea Urarqozb5607-15-77 05:40:00* Test Item Value Reference Range Interpretation Comments Blood Urea Nitrogen (test code = 3094-0) 5 7-26 L [facility] CenterCreatinine2019-06-25 05:40:00* Test Item Value Reference Range Interpretation Comments Creatinine (test code = 2160-0) 0.60 0.57-1.11 [facility] CenterBUN/Creatinine Gufou4979-94-08 05:40:00* Test Item Value Reference Range Interpretation Comments BUN/Creatinine Ratio (test code = 3097-3) 8 6-25 [facility] CenterEstimat Glomerular Filtration Rate 2018-11-21 05:40:00* Test Item Value Reference Range Interpretation Comments Estimat Glomerular Filtration Rate (test code = 245389278) > 60 >60 Ranges were taken from the National Kidney Disease Education Program and the [facility] Kidney Foundation literature.Reference ranges:60 or greater: Zwdauq10-25 ( for 3 consecutive months): Chronic kidney disease 15 or less: Kidney failureUniversity Medical CenterGlucose Mewed1555-04-31 05:40:00* Test Item Value Reference Range Interpretation Comments Glucose Level (test code = CWK2800) 85 74-118 [facility] CenterCalcium Eleyt2403-15-50 05:40:00* Test Item Value Reference Range Interpretation Comments Calcium Level (test code = 20004-9) 8.6 8.4-10.2 [facility] CenterMagnesium Sxbjn8808-63-05 05:40:00* Test Item Value Reference Range Interpretation Comments Magnesium Level (test code = 31540-6) 1.5 1.3-2.1 [facility] CenterTotal Ynlscwsde9433-10-76 05:40:00* Test Item Value Reference Range Interpretation Comments Total Bilirubin (test code = 1975-2) 0.3 0.2-1.2 [facility] CenterAspartate Amino Transf (AST/SGOT) 2018-11-21 05:40:00* Test Item Value Reference Range Interpretation Comments Aspartate Amino Transf (AST/SGOT) (test code = Aspartate Amino Transf (AST/SGOT)) 31 5-34 [facility] CenterAlanine Aminotransferase (ALT/SGPT) 2018-11-21 05:40:00* Test Item Value Reference Range Interpretation Comments Alanine Aminotransferase (ALT/SGPT) (test code = 1742-6) 25 0-55 [facility] CenterTotal Fxncajc0002-81-12 05:40:00* Test Item Value Reference Range Interpretation Comments Total Protein (test code = 2885-2) 5.7 6.5-8.1 L [facility] CenterAlbumin2019-06-25 05:40:00* Test Item Value Reference Range Interpretation Comments Albumin (test code = 1751-7) 2.7 3.5-5.0 L [facility] CenterGlobulin2019-06-25 05:40:00* Test Item Value Reference Range Interpretation Comments Globulin (test code = 99606-9) 3.0 2.3-3.5 [facility] CenterAlbumin/Globulin Zacvj1912-08-34 05:40:00 * Test Item Value Reference Range Interpretation Comments Albumin/Globulin Ratio (test code = 1759-0) 0.9 0.8-2.0 [facility] CenterAlkaline Blvdseryxli5861-77-31 05:40:00* Test Item Value Reference Range Interpretation Comments Alkaline Phosphatase (test code = 6768-6) 64 40-150 [facility] CenterWhite Blood Cmuib7146-99-72 05:16:00* Test Item Value Reference Range Interpretation Comments White Blood Count (test code = 6690-2) 8.64 4.8-10.8 [facility] CenterRed Blood Zsfmw2411-12-18 05:16:00* Test Item Value Reference Range Interpretation Comments Red Blood Count (test code = 789-8) 3.31 3.6-5.1 L [facility] CenterHemoglobin2019-06-25 05:16:00* Test Item Value Reference Range Interpretation Comments Hemoglobin (test code = 24924-0) 9.5 12.0-16.0 L [facility] CenterHematocrit2019-06-25 05:16:00* Test Item Value Reference Range Interpretation Comments Hematocrit (test code = 4544-3) 29.6 34.2-44.1 L [facility] CenterMean Corpuscular Uoewmy7433-12-44 05:16:00* Test Item Value Reference Range Interpretation Comments Mean Corpuscular Volume (test code = 787-2) 89.4 81-99 [facility] CenterMean Corpuscular Hbjcmmbhlc9125-92-58 05:16:00* Test Item Value Reference Range Interpretation Comments Mean Corpuscular Hemoglobin (test code = 785-6) 28.7 28-32 [facility] CenterMean Corpuscular Hemoglobin Concent 2018-11-21 05:16:00* Test Item Value Reference Range Interpretation Comments Mean Corpuscular Hemoglobin Concent (test code = 786-4) 32.1 31-35 [facility] CenterRed Cell Distribution Dbete3988-91-42 05:16:00* Test Item Value Reference Range Interpretation Comments Red Cell Distribution Width (test code = 73702-9) 14.8 11.7 -14.4 H [facility] CenterPlatelet Jwjym3964-67-80 05:16:00* Test Item Value Reference Range Interpretation Comments Platelet Count (test code = 777-3) 248 140-360 [facility] CenterNeutrophils (%) (Auto)2018-11-21 05:16:00 * Test Item Value Reference Range Interpretation Comments Neutrophils (%) (Auto) (test code = 09737-8) 64.8 38.7-80.0 [facility] CenterLymphocytes (%) (Auto)2018-11-21 05:16:00 * Test Item Value Reference Range Interpretation Comments Lymphocytes (%) (Auto) (test code = 736-9) 23.3 18.0-39.1 [facility] CenterMonocytes (%) (Auto)2018-11-21 05:16:00* Test Item Value Reference Range Interpretation Comments Monocytes (%) (Auto) (test code = 5905-5) 7.3 4.4-11.3 [facility] CenterEosinophils (%) (Auto)2018-11-21 05:16:00 * Test Item Value Reference Range Interpretation Comments Eosinophils (%) (Auto) (test code = 713-8) 3.6 0.0-6.0 [facility] CenterBasophils (%) (Auto)2018-11-21 05:16:00* Test Item Value Reference Range Interpretation Comments Basophils (%) (Auto) (test code = 706-2) 0.5 0.0-1.0 [facility] CenterIM GRANULOCYTES %2018-11-21 05:16:00* Test Item Value Reference Range Interpretation Comments IM GRANULOCYTES % (test code = IM GRANULOCYTES %) 0.5 0.0- 1.0 [facility] CenterNeutrophils # (Auto)2018-11-21 05:16:00* Test Item Value Reference Range Interpretation Comments Neutrophils # (Auto) (test code = 751-8) 5.6 2.1-6.9 [facility] CenterLymphocytes # (Auto)2018-11-21 05:16:00* Test Item Value Reference Range Interpretation Comments Lymphocytes # (Auto) (test code = 42324-2) 2.0 1.0-3.2 [facility] CenterMonocytes # (Auto)2018-11-21 05:16:00* Test Item Value Reference Range Interpretation Comments Monocytes # (Auto) (test code = 742-7) 0.6 0.2-0.8 [facility] CenterEosinophils # (Auto)2018-11-21 05:16:00* Test Item Value Reference Range Interpretation Comments Eosinophils # (Auto) (test code = 711-2) 0.3 0.0-0.4 [facility] CenterBasophils # (Auto)2018-11-21 05:16:00* Test Item Value Reference Range Interpretation Comments Basophils # (Auto) (test code = 704-7) 0.0 0.0-0.1 [facility] CenterAbsolute Immature Granulocyte (auto 2018-11-21 05:16:00* Test Item Value Reference Range Interpretation Comments Absolute Immature Granulocyte (auto (neha t code = Absolute Immature Granulocyte (auto) 0.04 0-0.1 [facility] CenterWhite Blood Lhrrb6358-40-21 05:16:00* Test Item Value Reference Range Interpretation Comments White Blood Count (test code = 6690-2) 8.64 4.8-10.8 [facility] CenterRed Blood Ozbji5171-36-77 05:16:00* Test Item Value Reference Range Interpretation Comments Red Blood Count (test code = 789-8) 3.31 3.6-5.1 L [facility] CenterHemoglobin2019-06-25 05:16:00* Test Item Value Reference Range Interpretation Comments Hemoglobin (test code = 18800-2) 9.5 12.0-16.0 L [facility] CenterHematocrit2019-06-25 05:16:00* Test Item Value Reference Range Interpretation Comments Hematocrit (test code = 4544-3) 29.6 34.2-44.1 L [facility] CenterMean Corpuscular Svgjrg7536-25-66 05:16:00* Test Item Value Reference Range Interpretation Comments Mean Corpuscular Volume (test code = 787-2) 89.4 81-99 [facility] CenterMean Corpuscular Kkrwqnuegc1952-76-23 05:16:00* Test Item Value Reference Range Interpretation Comments Mean Corpuscular Hemoglobin (test code = 785-6) 28.7 28-32 [facility] CenterMean Corpuscular Hemoglobin Concent 2018-11-21 05:16:00* Test Item Value Reference Range Interpretation Comments Mean Corpuscular Hemoglobin Concent (test code = 786-4) 32.1 31-35 [facility] CenterRed Cell Distribution Sfixq5388-21-83 05:16:00* Test Item Value Reference Range Interpretation Comments Red Cell Distribution Width (test code = 30378-7) 14.8 11.7 -14.4 H [facility] CenterPlatelet Lhhgs9917-95-87 05:16:00* Test Item Value Reference Range Interpretation Comments Platelet Count (test code = 777-3) 248 140-360 [facility] CenterNeutrophils (%) (Auto)2018-11-21 05:16:00 * Test Item Value Reference Range Interpretation Comments Neutrophils (%) (Auto) (test code = 01461-7) 64.8 38.7-80.0 [facility] CenterLymphocytes (%) (Auto)2018-11-21 05:16:00 * Test Item Value Reference Range Interpretation Comments Lymphocytes (%) (Auto) (test code = 736-9) 23.3 18.0-39.1 [facility] CenterMonocytes (%) (Auto)2018-11-21 05:16:00* Test Item Value Reference Range Interpretation Comments Monocytes (%) (Auto) (test code = 5905-5) 7.3 4.4-11.3 [facility] CenterEosinophils (%) (Auto)2018-11-21 05:16:00 * Test Item Value Reference Range Interpretation Comments Eosinophils (%) (Auto) (test code = 713-8) 3.6 0.0-6.0 [facility] CenterBasophils (%) (Auto)2018-11-21 05:16:00* Test Item Value Reference Range Interpretation Comments Basophils (%) (Auto) (test code = 706-2) 0.5 0.0-1.0 [facility] CenterIM GRANULOCYTES %2018-11-21 05:16:00* Test Item Value Reference Range Interpretation Comments IM GRANULOCYTES % (test code = IM GRANULOCYTES %) 0.5 0.0- 1.0 [facility] CenterNeutrophils # (Auto)2018-11-21 05:16:00* Test Item Value Reference Range Interpretation Comments Neutrophils # (Auto) (test code = 751-8) 5.6 2.1-6.9 [facility] CenterLymphocytes # (Auto)2018-11-21 05:16:00* Test Item Value Reference Range Interpretation Comments Lymphocytes # (Auto) (test code = 02286-9) 2.0 1.0-3.2 [facility] CenterMonocytes # (Auto)2018-11-21 05:16:00* Test Item Value Reference Range Interpretation Comments Monocytes # (Auto) (test code = 742-7) 0.6 0.2-0.8 [facility] CenterEosinophils # (Auto)2018-11-21 05:16:00* Test Item Value Reference Range Interpretation Comments Eosinophils # (Auto) (test code = 711-2) 0.3 0.0-0.4 [facility] CenterBasophils # (Auto)2018-11-21 05:16:00* Test Item Value Reference Range Interpretation Comments Basophils # (Auto) (test code = 704-7) 0.0 0.0-0.1 [facility] CenterAbsolute Immature Granulocyte (auto 2018-11-21 05:16:00* Test Item Value Reference Range Interpretation Comments Absolute Immature Granulocyte (auto (neha t code = Absolute Immature Granulocyte (auto) 0.04 0-0.1 [facility] CenterBlood Smuogsl1654-42-03 18:57:00* Test Item Value Reference Range Interpretation Comments Blood Culture (test code = 83122949) NO GROWTH AFTER 24 HOURS [facility] CenterCreatine Kinase BC2954-75-18 18:35:00* Test Item Value Reference Range Interpretation Comments Creatine Kinase MB (test code = 15139-7) 9.50 0-5.0 H [facility] CenterTroponin M3465-47-40 18:35:00* Test Item Value Reference Range Interpretation Comments Troponin I (test code = IYT3014) 0.003 0-0.300 [facility] CenterCreatine Kinase OU2795-30-02 18:35:00* Test Item Value Reference Range Interpretation Comments Creatine Kinase MB (test code = 00892-5) 9.50 0-5.0 H [facility] CenterTroponin K4569-22-62 18:35:00* Test Item Value Reference Range Interpretation Comments Troponin I (test code = SKG1600) 0.003 0-0.300 [facility] Acsunmg5023-66-84 08:34:00* Test Item Value Reference Range Interpretation Comments Bedside Glucose (test code = 94576-8) 79 70-120 Meter ID: [id number] Orthopedic Hospitalside Glucose 2018-11-20 08:34:00* Test Item Value Reference Range Interpretation Comments Bedside Glucose (test code = 77881-8) 79 70-120 Meter ID: [id number] Emergency HospitalPhosphorus Level 2018-11-20 07:12:00* Test Item Value Reference Range Interpretation Comments Phosphorus Level (test code = ROD9951) 2.3 2.3-4.7 [facility] CenterPhosphorus Uifow8659-13-32 07:12:00* Test Item Value Reference Range Interpretation Comments Phosphorus Level (test code = KNO6264) 2.3 2.3-4.[address] [facility] ([facility])2018-11-20 06:08:00 [facility] [address] [address] Patient Name: CHARY DOZIER MR #: [id number] : 1955 Age/Sex: 63/F Req #: [id number] Adm Physician: DAXA VIZCARRA MD Ordered by: ZORAIDA DONALDSON MD Report #: [id number] Location: MED/SURG2 Room/Bed: [facility] Procedure: [id number] DX/CHEST SINGLE (PORTABLE) Exam Date: 11/20/18 Exam Time: 0535 REPORT STATUS: Signed EXAMINATION: CHEST SINGLE (PORTABLE) COMPARISON: Chest x-ray 11/19/18 INDICATION: Shortness of breath SOB [id number] DISCUSS ION: Frontal view of the chest obtained at 0538 hours. HEART AND MEDIASTI NUM: The cardiomediastinal silhouette is unremarkable. LINES: None. LUNGS: Pulmonary vascular congestion and bibasilar atelectasis. PLEURA: No large effusions. No pneumothorax. BONES AND SOFT TISSUES: Stable ancho rs in the left humeral head. Stable degenerative changes and calcific tendinos is of the right shoulder. Fusion plate in the lower cervical spine is stable. The soft tissues are normal. IMPRESSION: Pulmonary vascular migue estion and bibasilar atelectasis. Signed by: Dr. Hilario Barber MD on 6:10 AM Dictated By: HILARIO BARBER MD 9 Transcribed By: NORRIS on 11/20/18609 COPY TO: ZORAIDA DONALDSON MD Urine Opiates Screen 2018-11-19 19:17:00* Test Item Value Reference Range Interpretation Comments Urine Opiates Screen (test code = 61703-6) POSITIVE NEGATIVE H ALL TESTS PERFORMED MANUALLY ON Interviu Me TOX/SEE TEST This test provides only a sc reen. Positive results should be repeated by a confirmatory test.[facility] Qlshci8300-13-14 19:17:00* Test Item Value Reference Range Interpretation Comments Urine Barbiturates Screen (test code = 345140099) NEGATIVE NEGA TIVE [facility] Phencyclidine Arijrl5307-83-08 19:17:00* Test Item Value Reference Range Interpretation Comments Urine Phencyclidine Screen (test code = 26116-3) NEGATIVE NEGAT ANDRE [facility] Amphetamines Xylqsy4303-15-17 19:17:00* Test Item Value Reference Range Interpretation Comments Urine Amphetamines Screen (test code = 22556-6) NEGATIVE NEGATI VE [facility] Methamphet[facility] Etazsy8962-11-36 19:17:00* Test Item Value Reference Range Interpretation Comments Urine Methamphetamines Screen (test code = Urine Metha mphetamines Screen) NEGATIVE NEGATIVE [facility] Benzodiazepines Chiwrf4641-91-25 19:17:00* Test Item Value Reference Range Interpretation Comments Urine Benzodiazepines Screen (test code = 12451-1) POSITIVE NEG ATIVE H This test provides only a screen. Positive results should be repeated by a confi rmatory test.[facility] Cocaine Screen 2018-11-19 19:17:00* Test Item Value Reference Range Interpretation Comments Urine Cocaine Screen (test code = 3398-5) NEGATIVE NEGATIVE [facility] Cannabinoids Sfrtge1747-11-90 19:17:00* Test Item Value Reference Range Interpretation Comments Urine Cannabinoids Screen (test code = 99026-0) NEGATIVE NEGATI VE THESE RESULTS ARE FOR MEDICAL TREATMENT ONLYTHIS REPORT CONTAINS UNCONFIR MED SCREENING RESULTS*POSITIVE RESULTS WILL BE CONFIRMED BY REFERENCE LAB UPON R EQUEST CUT-OFFDRUG CLASS CONCENTRATION ng/mLAmphetamines 1000Methamphetamines 1000Cocaine 300Opiate 300Phencyc lidine 25Cannabinoid 50Barbiturates 300Benzodiazepine [address] Fteqrn7256-88-12 19:17:00* Test Item Value Reference Range Interpretation Comments Urine Methadone Screen (test code = 65870-4) NEGATIVE NEGATIVE THESE RESULTS ARE FOR MEDICAL TREATMENT ONLYTHIS REPORT CONTAINS UNCONFIR MED SCREENING RESULTS*POSITIVE RESULTS WILL BE CONFIRMED BY REFERENCE LAB UPON R EQUEST CUT-OFFDRUG CLASS CONCENTRATION ng/mLAmphetamines 1000Methamphetamines 1000Cocaine Metabolite 300Opiate 300Phencyc lidine 25Cannabinoid 50Barbiturates 300Benzodiazepine 300Methadone 300[facility] Cuvmug8477-16-52 19:17:00* Test Item Value Reference Range Interpretation Comments Urine Opiates Screen (test code = 64315-0) POSITIVE NEGATIVE H ALL TESTS PERFORMED MANUALLY ON Interviu Me TOX/SEE TEST This test provides only a sc reen. Positive results should be repeated by a confirmatory test.[facility]ates Fjxfck9447-01-58 19:17:00* Test Item Value Reference Range Interpretation Comments Urine Barbiturates Screen (test code = 848458343) NEGATIVE NEGA TIVE [facility] Phencyclidine Ttqdiw3958-92-52 19:17:00* Test Item Value Reference Range Interpretation Comments Urine Phencyclidine Screen (test code = 17681-5) NEGATIVE NEGAT ANDRE [facility] Amphetamines Fbigmg6641-56-32 19:17:00* Test Item Value Reference Range Interpretation Comments Urine Amphetamines Screen (test code = 70500-1) NEGATIVE NEGATI VE [facility] Methamphetamines Lnkgug0381-67-75 19:17:00* Test Item Value Reference Range Interpretation Comments Urine Methamphetamines Screen (test code = Urine Metha mphetamines Screen) NEGATIVE NEGATIVE [facility] Benzodiazepines Wysyqm5070-96-48 19:17:00* Test Item Value Reference Range Interpretation Comments Urine Benzodiazepines Screen (test code = 81707-4) POSITIVE NEG ATIVE H This test provides only a screen. Positive results should be repeated by a confi rmatory test.[facility] Coc[facility] 2018-11-19 19:17:00* Test Item Value Reference Range Interpretation Comments Urine Cocaine Screen (test code = 3398-5) NEGATIVE NEGATIVE [facility] Cannabinoids Lxhuih4646-90-24 19:17:00* Test Item Value Reference Range Interpretation Comments Urine Cannabinoids Screen (test code = 96134-7) NEGATIVE NEGATI VE THESE RESULTS ARE FOR MEDICAL TREATMENT ONLYTHIS REPORT CONTAINS UNCONFIR MED SCREENING RESULTS*POSITIVE RESULTS WILL BE CONFIRMED BY REFERENCE LAB UPON R EQUEST CUT-OFFDRUG CLASS CONCENTRATION ng/mLAmphetamines 1000Methamphetamines 1000Cocaine 300Opiate 300Phencyc lidine 25Cannabinoid 50Barbiturates 300Benzodiazepine 300Methadone 300[facility] Meth[facility]one Udlykb7974-37-15 19:17:00* Test Item Value Reference Range Interpretation Comments Urine Methadone Screen (test code = 56825-9) NEGATIVE NEGATIVE THESE RESULTS ARE FOR MEDICAL TREATMENT ONLYTHIS REPORT CONTAINS UNCONFIR MED SCREENING RESULTS*POSITIVE RESULTS WILL BE CONFIRMED BY REFERENCE LAB UPON R EQUEST CUT-OFFDRUG CLASS CONCENTRATION ng/mLAmphetamines 1000Methamphetamines 1000Cocaine Metabolite 300Opiate 300Phencyc lidine 25Cannabinoid 50Barbiturates 300Benzodiazepine 300Methadone 300[facility] WEE3562-21-45 18:48:00* Test Item Value Reference Range Interpretation Comments Urine WBC (test code = 5821-4) 0-5 0-5 [facility] MND8056-51-60 18:48:00* Test Item Value Reference Range Interpretation Comments Urine RBC (test code = 13626-9) 0-5 0-5 [facility] Jkjbdtnv9950-30-00 18:48:00* Test Item Value Reference Range Interpretation Comments Urine Bacteria (test code = 74744-9) FEW NONE [facility] Epithelial Voost4584-15-03 18:48:00 * Test Item Value Reference Range Interpretation Comments Urine Epithelial Cells (test code = 24992-3) FEW NONE [facility] Amorphous Lahlbnbh7328-10-29 18:48:00* Test Item Value Reference Range Interpretation Comments Urine Amorphous Sediment (test code = 8246-1) FEW FEW [facility] Lqnru7685-20-42 18:48:00* Test Item Value Reference Range Interpretation Comments Urine Mucus (test code = 8247-9) FEW RARE H [facility] UVF1257-26-83 18:48:00* Test Item Value Reference Range Interpretation Comments Urine WBC (test code = 5821-4) 0-5 0-5 [facility] FNM5435-09-99 18:48:00* Test Item Value Reference Range Interpretation Comments Urine RBC (test code = 19176-3) 0-5 0-5 [facility] Gtmgmige6007-08-88 18:48:00* Test Item Value Reference Range Interpretation Comments Urine Bacteria (test code = 33049-7) FEW NONE [facility] Epithelial Ffyyu9275-85-55 18:48:00 * Test Item Value Reference Range Interpretation Comments Urine Epithelial Cells (test code = 13247-0) FEW NONE [facility] Amorphous Ekuwdymc9561-81-47 18:48:00* Test Item Value Reference Range Interpretation Comments Urine Amorphous Sediment (test code = 8246-1) FEW FEW [facility] Hjheb9836-18-15 18:48:00* Test Item Value Reference Range Interpretation Comments Urine Mucus (test code = 8247-9) FEW RARE H [facility] Center[facility]INGLE ([facility])2018-11-19 18:24:00 [facility] [address] [address] Patient Name: CHARY DOZIER MR #: [id number] : 1955 Age/Sex: 63/F Req #: [id number] Adm Physician: Ordered by: ZORAIDA DONALDSON MD Report #: [id number] Location: ER Room/Bed: Procedure: [id number] DX/CHEST SINGLE (PORTABLE) Exam Date: 11/19/18 Exam Time: 1814 REPORT STATUS: Signed Examination: Single AP view of the chest. COMPARISON: None. INDICATIO N: Passing out, fall, shortness of breath IMPRESSION: 1. Lines a nd Tubes: None 2. Lungs are grossly clear. No consolidation or effusion. 3 . Cardiomediastinal silhouette is normal. Pulmonary vasculature is normal. 4. No acute bony abnormalities. Signed by: Dr. Omari Grajeda M.D. on 11/19/2018 6:25 PM Dictated By: OMARI GRAJEDA MD 24 Transcribed By: NORRIS on 11/19/181824 COPY TO: ZORAIDA DONALDSON MD Urine Anuqe1858-89-74 18:20:00* Test Item Value Reference Range Interpretation Comments Urine Color (test code = 5778-6) YELLOW YELLOW [facility] Mnyikvx8526-14-34 18:20:00* Test Item Value Reference Range Interpretation Comments Urine Clarity (test code = 29322-2) SL CLOUDY CLEAR [facility] Specific Rnsurtc1373-36-63 18:20:00 * Test Item Value Reference Range Interpretation Comments Urine Specific [place] (test code = 5811-5) <=1.005 1.010-1.02 5 [facility] bA7013-65-38 18:20:00* Test Item Value Reference Range Interpretation Comments Urine pH (test code = 26163-0) 5 5-7 [facility] Leukocyte Pwytnhbd4662-95-69 18:20:00* Test Item Value Reference Range Interpretation Comments Urine Leukocyte Esterase (test code = 11394-1) NEGATIVE NEGATIV E [facility] Agjoxyr7069-78-87 18:20:00* Test Item Value Reference Range Interpretation Comments Urine Nitrite (test code = 52564-0) NEGATIVE NEGATIVE [facility] Rwpxgkr6227-84-34 18:20:00* Test Item Value Reference Range Interpretation Comments Urine Protein (test code = 94135-7) NEGATIVE NEGATIVE [facility] Glucose (UA)2018-11-19 18:20:00* Test Item Value Reference Range Interpretation Comments Urine Glucose (UA) (test code = 33662-0) NEGATIVE NEGATIVE [facility] Boibvcl7072-11-48 18:20:00* Test Item Value Reference Range Interpretation Comments Urine Ketones (test code = 95143-0) NEGATIVE NEGATIVE [facility] Zlaauspixqga1512-98-38 18:20:00* Test Item Value Reference Range Interpretation Comments Urine Urobilinogen (test code = 16548-1) 0.2 0.2-1 [facility] Jaypnduef0689-29-49 18:20:00* Test Item Value Reference Range Interpretation Comments Urine Bilirubin (test code = 1977-8) NEGATIVE NEGATIVE [facility] Itqpz7106-35-49 18:20:00* Test Item Value Reference Range Interpretation Comments Urine Blood (test code = 31768-0) 1+ NEGATIVE [facility] Damxz2927-78-86 18:20:00* Test Item Value Reference Range Interpretation Comments Urine Color (test code = 5778-6) YELLOW YELLOW [facility] Oryhrlw5468-76-69 18:20:00* Test Item Value Reference Range Interpretation Comments Urine Clarity (test code = 32509-5) SL CLOUDY CLEAR [facility] Specific Skjddql8471-51-88 18:20:00 * Test Item Value Reference Range Interpretation Comments Urine Specific [place] (test code = 5811-5) <=1.005 1.010-1.02 5 [facility] aU5244-23-08 18:20:00* Test Item Value Reference Range Interpretation Comments Urine pH (test code = 11141-0) 5 5-7 [facility] Leukocyte Nznoiqlu7984-44-46 18:20:00* Test Item Value Reference Range Interpretation Comments Urine Leukocyte Esterase (test code = 35637-4) NEGATIVE NEGATIV E [facility] Uyshwuy8960-17-01 18:20:00* Test Item Value Reference Range Interpretation Comments Urine Nitrite (test code = 77495-2) NEGATIVE NEGATIVE [facility] Gigpenh1102-24-24 18:20:00* Test Item Value Reference Range Interpretation Comments Urine Protein (test code = 26808-4) NEGATIVE NEGATIVE [facility] Glucose (UA)2018-11-19 18:20:00* Test Item Value Reference Range Interpretation Comments Urine Glucose (UA) (test code = 11249-1) NEGATIVE NEGATIVE [facility] Pswhkfg4375-58-12 18:20:00* Test Item Value Reference Range Interpretation Comments Urine Ketones (test code = 60863-7) NEGATIVE NEGATIVE [facility] Pqahwoxhtykq6185-49-48 18:20:00* Test Item Value Reference Range Interpretation Comments Urine Urobilinogen (test code = 34698-4) 0.2 0.2-1 [facility] Dwdznhcpb7047-29-76 18:20:00* Test Item Value Reference Range Interpretation Comments Urine Bilirubin (test code = 1977-8) NEGATIVE NEGATIVE [facility] Omqgn5464-35-61 18:20:00* Test Item Value Reference Range Interpretation Comments Urine Blood (test code = 89453-9) 1+ NEGATIVE [facility] HH4870-42-35 17:06:[address] [address] Patient Name: CHARY DOZIER MR #: [id number] : 1955 Age/Sex: 63/F Req #: [id number] Adm Physician: Ordered by: ZORAIDA DONALDSON MD Report #: [id number] Location: Room/Bed: Procedure: [id number] CT/CT ABDOMEN/PELVIS WO Exam Date: 11/19/18 Exam Kee e: 1630 REPORT STATUS: Signed EX AMINATION: CT of the abdomen and pelvis without contrast. TECHNIQUE: Spira l CT images of the abdomen and pelvis were performed from the lung bases to th e lesser trochanters. No intravenous contrast was given due to decreased GFR. Coronal and sagittal reformatted images were obtained. COMPARISON: None. CLINICAL HISTORY:Fall, syncope, abdominal pain DISCUSSION: ABSENCE OF INTRAVENOUS CONTRAST DECREASES SENSITIVITY FOR DETECTION OF FOCAL LESIONS AND VASCULAR PATHOLOGY. ABDOMEN/PELVIS: LOWER THORAX: Linear opacities in the lingula and bilateral lower lobes, which represents of segmental ate lectasis or scarring. No consolidation or effusion. Mildly patulous distal eso phagus. HEPATOBILIARY: No focal hepatic lesions. No intra or extrahepatic biliary ductal dilation. GALLBLADDER: No radio-opaque stones or sludge. No wall thickening. SPLEEN: No splenomegaly. PANCREAS: No focal masses or ductal dilatation. ADRENALS: No adrenal nodules. KIDNEYS/URETERS: No hydronephrosis, stones, or contour abnormalities. No significant perinephri c stranding. PELVIC ORGANS/BLADDER: Bladder is unremarkable. Uterus is abse nt. No adnexal masses. Pelvic phleboliths. PERITONEUM/RETROPERITONEUM: No free air or fluid. LYMPH NODES: No intra-abdominal,retroperitoneal, pelvic or inguinal lymphadenopathy. VESSELS: Minimal atherosclerotic calcificat ion of the abdominal aorta. GI TRACT: No bowel dilation or evidence of obst ruction. No pericolonic inflammatory changes. Postoperative changes in the sto mach and proximal small bowel, likely reflecting prior gastric bypass surgery. BONES AND SOFT TISSUES: No aggressive lytic lesions. Moderate multilevel degenerative disc changes in the lower thoracic and lumbosacral spine, with l evoscoliosis. Facet hypertrophy L5-S1. Small fat-containing left inguinal trish ia. Soft tissues are otherwise unremarkable. IMPRESSION: 1. No acu te abdominopelvic abnormalities in this noncontrast exam. No bowel dilation or evidence of obstruction. No intra-abdominal or pelvic free air or free fluid. Signed by: Dr. Omari Grajeda M.D. on 11/19/2018 5:10 PM Dictated By: OMARI GRAJEDA MD 09 Transcribed By: NORRIS on 11/19/181709 COPY TO: ZORAIDA DONALDSON MD CT BRAIN [id number] 16:44:00 [address] [address] Patient Name: CHARY DOZIER MR #: [id number] : 1955 Age/Sex: 63/F Req #: [id number] Adm Physician: Ordered by: ZORAIDA DONALDSON MD Report #: [id number] Location: ER Room/Bed: Procedure: [id number] CT/CT BRAIN WO Exam Date: Exam Time: REPORT STATUS: Signed History: Syncope C omparison studies: Most recent head CT on 06/23/2009 Technique: Axi al images were obtained from the skull base to the vertex. Coronal and sagit salvatore reconstructions obtained from the axial data. Dose modulation, iterative r econstruction, and/or weight based adjustment of the mA/kV was utilized to re duce the radiation dose to as low as reasonably achievable. Intravenous contrast: None Findings: Scalp/skull: No abnormalities. No fracture s, blastic or lytic lesions. Extra-axial spaces: No masses. No fluid co llections. Brain sulci: Appropriate for age. Ventricles: Normal in size a nd configuration. No hydrocephalus. Parenchyma: No abnormal densities. No masses, hemorrhage, acute or chronic cortical vascular insults. Sellar /suprasellar region: No abnormalities Craniocervical junction: Patent foramen magnum. No Chiari one malformation. IMPRESSION: No abnormalities. No changes compared to the previous head CT on 06/23/2009 Signed by: Dr. Shreya Montoya M.D. on 11/19/2018 4:45 PM Dictated By: KEO FLEMING MD, MD 16 45 Transcribed By: NORRIS on 11/19/18 8532 COPY TO: ZORAIDA DONALDSON MD Thyroid Stimulating Hormone (TSH)2018-11-19 16:21:00* Test Item Value Reference Range Interpretation Comments Thyroid Stimulating Hormone (TSH) (test code = 77379-7) 0.020 0.350-4.940 L [facility] Center[facility]one (TSH) 2018-11-19 16:21:00* Test Item Value Reference Range Interpretation Comments Thyroid Stimulating Hormone (TSH) (test code = 03466-2) 0.020 0.350-4.940 L [facility] CenterLipase2019-06-23 15:57:00* Test Item Value Reference Range Interpretation Comments Lipase (test code = 3040-3) [facility] Center[facility]ase2019-06-23 15:57:00* Test Item Value Reference Range Interpretation Comments Lipase (test code = 3040-3) [facility] CenterLactic Acid Escaw2451-24-39 15:54:00* Test Item Value Reference Range Interpretation Comments Lactic Acid Level (test code = Lactic Acid Level) 18.3 4.5- 19.8 [facility] Center[facility] Acid Dkhyu2649-49-96 15:54:00* Test Item Value Reference Range Interpretation Comments Lactic Acid Level (test code = Lactic Acid Level) 18.3 4.5- 19.8 [facility] CenterINTERVERTEBRAL NAKJ3836-55-50 14:17:00 RUN DATE: 07/05/18 [facility] PAGE 1 RUN TIME: 1418 Specimen Inqui ry RUN USER: INTERFACE PATIENT: CHARY DOZIER ACCT #: [id number] LOC: ERIN U #: [id number] AGE/SX: 63/F ROOM: [facility] RE07/03/18REG DR: North Salas MD : [birth year] BED: A DIS: 07/04/18 STATUS: DIS Minal TLOC: SPEC #: [id number] RECD: 07/04/18 STATUS: HUNTER REQ #: [id number] NAGA: 07/03/18- SUBM DR: North Salas MD ENTERED: 07/04/18 SP TYPE: INT DISC OTHR DR: Daxa Carrera MD ORDERED: GROSS COPIES TO: Daxa Vizcarra MD [address] [place], [place] [id number] North Salas MD [address] [address] PROCEDURES: GROSS (07/05/18 -1322) TISSUES: CERVICAL VERTEBRA, NOS - DISC CLINICAL HISTORY COLLECTION DATE: 07/03/2018 C3-4; C4-5; C5-6 SPONDYLOSIS AND SPINAL MARLIN NOSIS FINAL DIAGNOSIS Intervertebral disc, C3-C4, C4-C5, C5-C6, disce ctomy: FIBROCARTILAGINOUS DEGENERATION NO DISCITIS, VASCULAR PROLI FERATION OR MALIGNANCY IDENTIFIED FA/greer D 14239, [address]6957 MACROSCOPIC The specimen is received in formalin, labeled with the patient's name, identified as "cervical disc", and consists of multiple portions of ross white soft and rubbery tissue and minute portions of bone measuring 3.5 X 2.0 X 1.0 cm in aggregate. Operational Risk Consultant of section is submitted in a single gigi sette after light decalcification. PAOLA KUMAR ON NEXT PAGE RUN DATE: 07/05/18 [facility] - Lab PAGE 2 RUN TIME: 1418 Specimen Inquiry RUN USER: INTERFACE SPEC #: [id number] ATIENT: CHARY DOZIER #[id number] (Continued) MACROSCOPIC (Continued) GROSS PERFORMED AT [facility] [address] [facility] [facility], [place] [address] [phone])[phone] PERFORMING SITE Diagnosis performed at: [facility] [address] [facility] [place] [address] Signed SIGNATURE ON FILE Joseph Hightower MD 07/05/18 1417 END OF REPORT - XR C-SPINE 2-3 VIEWS 2018-07-04 13:23:00 FAX: Daxa Newell MD [phone] [place]: B St: DIS FAX: North Schwartz MD [phone] Name: CHARY DOZIER [facility] : 1955 Age/S: 63/F [address] [facility] Unit #: [id number] Loc: V.[address] [address] Phys: North Salas MD Acct: [id number] Dis Date: [id number] Status: DIS IN PHONE #: [phone] Exam Date: 07/04/2018 1013 FAX #: [phone] Reason: Status post fusion EXAMS: CPT CODE: [id number] XR C-SPINE 2-3 VIEWS 32047 HISTORY: Post cervical fusion. COMPARISON: None available. [...] and signed by: Irving Chawla M.D. CC: Daxa Vizcarra MD; North Salas MD Technologist: VARGAS PABON RT(R) Trnscrd Date/Time/By: 07/04/2018 (4447) : By: [email or web address] Orig Print D/T: S: 07/04/2018 (1602) PAGE 1 Signed Report PROTHROMBIN [id number] 15:35:00* Test Item Value Reference Range Interpretation Comments PROTHROMBIN TIME PATIENT (test code = PTP) 11.3 seconds 9.0-14.0 N INTERNATIONAL NORMAL RATIO (test code = INR) 0.9 0.8-1.2 N The therapeutic range for oral anticoagulant therapy [...] Mechanical prosthetic heart valves (2.5-3.5) THROMBOPLASTIN TIME CYSWTUT9939-27-11 15:35:00* Test Item Value Reference Range Interpretation Comments THROMBOPLASTIN TIME PARTIAL (test code = PTT) 32.3 seconds 25.0-36. 5 N BASIC METABOLIC [id number] 15:23:00* Test Item Value Reference Range Interpretation Comments SODIUM (test code = NA) 140 mmol/L 136-145 N POTASSIUM (test code = K) 4.4 mmol/L 3.5-5.1 N CHLORIDE (test code = CL) 108.0 mmol/L 98-107 H CARBON DIOXIDE (test code = CO2) 27.0 mmol/L 21-32 N ANION GAP (test code = GAP) 9.4 10-20 L GLUCOSE (test code = GLU) 94 mg/dL 74-106 N BLOOD UREA NITROGEN (test code = BUN) 17 mg/dL 7-18 N GLOMERULAR FILTRATION RATE (test code = GFR) > 60 mL/min >=60 Estimated GFR by using Modified MDRD formula.Chronic kidney disease is defined as either kidney damageor GFR <60 mL/min/1.73 m2 for >3 months. CREATININE (test code = CREAT) 0.80 mg/dL 0.55-1.02 N Note change in reference range due to change in reagent. BUN/CREATININE RATIO (test code = BUN/CREA) 22.4 10-20 H CALCIUM (test code = CA) 9.3 mg/dL 8.5-10.1 N CBC W/AUTO [id number] 15:09:00* Test Item Value Reference Range Interpretation Comments WHITE BLOOD CELL (test code = WBC) 9.4 K/mm3 4.5-12.5 N RED BLOOD CELL (test code = RBC) 4.71 mill/mm3 3.7-5.2 N HEMOGLOBIN (test code = HGB) 13.7 gram/dL 11.5-15.5 N HEMATOCRIT (test code = HCT) 44.3 % 36.0-46.0 N MEAN CELL VOLUME (test code = MCV) 94.1 fL 80-98 N MEAN CELL HGB (test code = MCH) 29.1 picogram 27.0-33.0 N MEAN CELL HGB CONCETRATION (test code = MCHC) 30.9 gram/dL 33.0-36. 0 L RED CELL DISTRIBUTION WIDTH (test code = RDW) 14.3 % 11.6-16. 2 N RED CELL DISTRIBUTION WIDTH SD (test code = RDW-SD) 49.7 fL 37 .0-51.0 N PLATELET COUNT (test code = PLT) 388 K/mm3 150-450 N MEAN PLATELET VOLUME (test code = MPV) 10.3 fL 6.7-11.0 N NEUTROPHIL % (test code = NT%) 55.9 % 39.0-69.0 N IMMATURE GRANULOCYTE % (test code = IG%) 0.3 % 0.0-5.0 N LYMPHOCYTE % (test code = LY%) 30.8 % 25.0-55.0 N MONOCYTE % (test code = MO%) 9.3 % 0.0-10.0 N EOSINOPHIL % (test code = EO%) 2.8 % 0.0-5.0 N BASOPHIL % (test code = BA%) 0.9 % 0.0-1.0 N NUCLEATED RBC % (test code = NRBC%) 0.0 % 0-0 N NEUTROPHIL # (test code = NT#) 5.24 K/mm3 1.8-7.7 N IMMATURE GRANULOCYTE # (test code = IG#) 0.03 x10 3/uL 0-0.03 N LYMPHOCYTE # (test code = LY#) 2.88 K/mm3 1.0-5.0 N MONOCYTE # (test code = MO#) 0.87 K/mm3 0-0.8 H EOSINOPHIL # (test code = EO#) 0.26 K/mm3 0.0-0.5 N BASOPHIL # (test code = BA#) 0.08 K/mm3 0.0-0.2 N NUCLEATED RBC # (test code = NRBC#) 0.00 K/mm3 0.0-0.1 N MANUAL DIFF REQUIRED (test code = MDIFF) NO - XR CHEST 2 [id number] 15:03:00 FAX: Daxa Newell MD [phone] [place]: O St: PRE FAX: Y North Salas MD [phone] Name: CHARY DOZIER [facility] : 1955 Age/S: 63/F [address] Unit #: [id number] Loc: [place] [address] Phys: North Salas MD Acct: [id number] Dis Date: Status: PRE IN PHONE #: [phone] Exam Date: 06/30/2018 1433 FAX #: [phone] Reason: PRE OP EXAMS: CPT CODE: [id number] XR CHEST 2 V 13903 EXAM: Chest x-ray, 2 views; INFORMATION: Cervical [...] and signed by: Kaden Vaughn M.D. CC: Daxa Vizcarra MD; North Weiss MD Technologist: Lilia Dickson Trnscrd Date/Time/By: 06/30/2018 (1845) : By: CarolGRW Orig Print D/T: S: 06/30/2018 (1576) PAGE 1 Signed Report
[2020-01-05 16:54] LABS: INR 0.95; PROTHROMBIN TIME 13.2 seconds (11.9-14.5)
[2020-01-05 17:01] LABS: ALANINE AMINOTRANSFERASE 20 IU/L (0-55); ALBUMIN 3.5 g/dL (3.5-5.0); ALBUMIN/GLOBULIN RATIO 1.2 (0.8-2.0); ALKALINE PHOSPHATASE 70 IU/L (40-150); BLOOD UREA NITROGEN 12 mg/dL (7-26); BUN/CREATININE RATIO 14 (6-25); CALCIUM 8.5 mg/dL (8.4-10.2); CARBON DIOXIDE 29 mmol/L (22-29); CHLORIDE 105 mmol/L (98-107); CREATINE KINASE 76 IU/L (29-168); CREATININE, SERUM 0.87 mg/dL (0.57-1.11); EST GLOMERULAR FILTRATION RATE > 60 ML/MIN (60-); GLUCOSE 83 mg/dL (74-118); SODIUM 144 mmol/L (136-145)
--- NOTE | 2020-01-05 17:26 | Diagnostic Imaging Report ---
EXAMINATION: CHEST SINGLE (PORTABLE) INDICATION: ^Y ^sob ^[id number] ^[id number] COMPARISON: 06/01/2019. FINDINGS: TUBES and LINES: None. LUNGS: Lungs are well inflated. Lungs are clear. There is no evidence of pneumonia or pulmonary edema. PLEURA: No pleural effusion or pneumothorax. HEART AND MEDIASTINUM: Cardiac size is mildly enlarged. BONES AND SOFT TISSUES: No acute osseous lesion. Lower cervical fusion hardware. UPPER ABDOMEN: No free air under the diaphragm. IMPRESSION: No acute thoracic abnormality. Signed by: Dr. Berkley Solano M.D. on 01/05/2020 5:22 PM
[2020-01-05 18:37] LABS: BASOPHILS # (AUTO) 0.1 (0.0-0.1); BASOPHILS % 1.2 % (0.0-1.0); EOSINOPHILS # (AUTO) 0.2 (0.0-0.4); EOSINOPHILS % 3.6 % (0.0-6.0); HEMATOCRIT 34.7 % (34.2-44.1); HEMOGLOBIN 10.9 g/dL (12.0-16.0); LYMPHOCYTES # (AUTO) 2.7 (1.0-3.2); LYMPHOCYTES % 44.3 % (18.0-39.1); MEAN CORPUSCULAR HEMOGLOBIN 29.2 pg (28-32); MEAN CORPUSCULAR HGB CONC 31.4 g/dL (31-35); MONOCYTES # (AUTO) 0.7 (0.2-0.8); MONOCYTES % 12.1 % (4.4-11.3); NEUTROPHILS # (AUTO) 2.3 (2.1-6.9); PLATELET COUNT 320 x10e3/uL (140-360); RED BLOOD COUNT 3.73 x10e6/uL (3.6-5.1); RED CELL DISTRIBUTION WIDTH 14.1 % (11.7-14.4)
[2020-01-05 18:37] LABS: CLARITY,URINE CLEAR (CLEAR); COLOR,URINE YELLOW (YELLOW); LEUKOCYTE ESTERASE ,URINE TRACE (NEGATIVE); NITRITE,URINE NEGATIVE (NEGATIVE)
[2020-01-05 18:38] LABS: BACTERIA,URINE FEW /HPF; BILIRUBIN,URINE NEGATIVE (NEGATIVE); EPITHELIAL CELLS,URINE MODERATE /LPF; KETONES,URINE NEGATIVE (NEGATIVE); PROTEIN,URINE DIPSTICK NEGATIVE (NEGATIVE); RBC,URINE 0-5 /HPF (0-5); URINE UROBILINOGEN 1 mg/dL (0.2 - 1); WBC,URINE (MAN) 0-5 /HPF (0-5)
--- NOTE | 2020-01-05 19:31 | Emergency Department Note ---
History of Present Illnes History of Present Illness Chief Complaint: Respiratory History of Present Illness This is a 64 year old female c/o sob with cough x 1 week denies cp never smoked also c/o n/v and diarrhea x 2 weeks states cough/sob not getting better unable to get thru to pcp. Historian: Patient, Pattern Puncher/EMS Arrival Mode: [facility] Curriculum Advisory Teacher Required: No Onset (how long ago): week(s) (1) Radiation: Reports non-radiation Severity: mild Onset quality: gradual Timing of current episode: intermittent Progression: waxing and waning Chronicity: new Context: Denies recent illness Relieving factors: none Exacerbating factors: none Associated symptoms: Reports cough, Reports shortness of breath Treatments prior to arrival: none Past Medical/Family History Physician Review I have reviewed the patient's past medical and family history. Any updates have been documented here. Past Medical History Recent Fever: No Clinical Suspicion of Infectio: No New/Unexplained Change in Ment: No Past Medical History: Hypertension, Hypothyroidism Other Medical History: HYPOTHYROIDISM NEUROPATHY Past Surgical History: Appendectomy, Hysterectomy, Other Surgery: CARPAL TUNNEL SHOULDER SX Social History Smoking Cessation: Never Smoker Counseling Performed: No Alcohol Use: None Any Illegal Drug Use: No Physically hurt or threatened: No Family History Family history of heart diseas: No Other Last Tetanus: 2008 Any Pre-Existing Lines (PICC,: No Review of Systems Review of Systems Constitutional: Reports no symptoms EENTM: Reports no symptoms Cardiovascular: Reports no symptoms Respiratory: Reports as per HPI, Reports cough, Reports dyspnea Gastrointestinal: Reports no symptoms Genitourinary: Reports no symptoms Musculoskeletal: Reports no symptoms Integumentary: Reports no symptoms Neurological: Reports no symptoms Psychological: Reports no symptoms Endocrine: Reports no symptoms Hematological/Lymphatic: Reports no symptoms Physical Exam Related Data Allergies: Coded Allergies: No Known Allergies (Unverified , 11/24/10) Triage Vital Signs Vital Signs Date Time Temp Pulse Resp B/P (MAP) Pulse Ox O2 Delivery O2 Flow Rate FiO2 01/05/20 15:58 98.7 70 18 143/75 100 Room Air 01/05/20 19:04 0.5 Physical Exam CONSTITUTIONAL Constitutional: Present well-developed, Present well-nourished HENT HENT: Present normocephalic, Present atraumatic, Present oropharynx clear/moist, Present nose normal HENT L/R: Present left ext ear normal, Present right ext ear normal EYES Eyes: Reports PERRL, Reports conjunctivae normal NECK Neck: Present ROM normal PULMONARY Pulmonary: Present effort normal, Present breath sounds normal CARDIOVASCULAR Cardiovascular: Present regular rhythm, Present heart sounds normal, Present capillary refill normal, Present normal rate GASTROINTESTINAL Abdominal: Present soft, Present nontender, Present bowel sounds normal GENITOURINARY Genitourinary: Present exam deferred SKIN Skin: Present warm, Present dry MUSCULOSKELETAL Musculoskeletal: Present ROM normal NEUROLOGICAL Neurological: Present alert, Present oriented x 3, Present no gross motor or sensory deficits PSYCHOLOGICAL Psychological: Present mood/affect normal, Present judgement normal Results Laboratory Result Diagram: 01/05/20 1610 01/05/20 1610 Laboratory Laboratory Tests Test 01/05/20 17:29 01/05/20 16:10 Urine Color Yellow (YELLOW) Urine Clarity Clear (CLEAR) Urine pH 7 (5 - 7) Urine Specific [place] 1.025 (1.010-1.025) Urine Protein Negative (NEGATIVE) Urine Glucose (UA) Negative (NEGATIVE) Urine Ketones Negative (NEGATIVE) Urine Blood Trace (NEGATIVE) Urine Nitrite Negative (NEGATIVE) Urine Bilirubin Negative (NEGATIVE) Urine Urobilinogen 1 mg/dL (0.2 - 1) Urine Leukocyte Esterase Trace (NEGATIVE) Urine RBC 0-5 /HPF (0-5) Urine WBC 0-5 /HPF (0-5) Urine Epithelial Cells Moderate /LPF (NONE) Urine Bacteria Few /HPF (NONE) White Blood Count 6.03 x10e3/uL (4.8-10.8) Red Blood Count 3.73 x10e6/uL (3.6-5.1) Hemoglobin 10.9 g/dL (12.0-16.0) Hematocrit 34.7 % (34.2-44.1) Mean Corpuscular Volume 93.0 fL (81-99) Mean Corpuscular Hemoglobin 29.2 pg (28-32) Mean Corpuscular Hemoglobin Concent 31.4 g/dL (31-35) Red Cell Distribution Width 14.1 % (11.7-14.4) Platelet Count 320 x10e3/uL (140-360) Neutrophils (%) (Auto) 38.0 % (38.7-80.0) Lymphocytes (%) (Auto) 44.3 % (18.0-39.1) Monocytes (%) (Auto) 12.1 % (4.4-11.3) Eosinophils (%) (Auto) 3.6 % (0.0-6.0) Basophils (%) (Auto) 1.2 % (0.0-1.0) Neutrophils # (Auto) 2.3 (2.1-6.9) Lymphocytes # (Auto) 2.7 (1.0-3.2) Monocytes # (Auto) 0.7 (0.2-0.8) Eosinophils # (Auto) 0.2 (0.0-0.4) Basophils # (Auto) 0.1 (0.0-0.1) Absolute Immature Granulocyte (auto 0.05 x10e3/uL (0-0.1) Prothrombin Time 13.2 seconds (11.9-14.5) Prothromb Time International Ratio 0.95 Activated Partial Thromboplast Time 28.0 seconds (23.8-35.5) Sodium Level 144 mmol/L (136-145) Potassium Level 4.0 mmol/L (3.5-5.1) Chloride Level 105 mmol/L (98-107) Carbon Dioxide Level 29 mmol/L (22-29) Anion Gap 14.0 mmol/L (8-16) Blood Urea Nitrogen 12 mg/dL (7-26) Creatinine 0.87 mg/dL (0.57-1.11) Estimat Glomerular Filtration Rate > 60 ML/MIN (60-) BUN/Creatinine Ratio 14 (6-25) Glucose Level 83 mg/dL (74-118) Calcium Level 8.5 mg/dL (8.4-10.2) Total Bilirubin 0.1 mg/dL (0.2-1.2) Aspartate Amino Transf (AST/SGOT) 26 IU/L (5-34) Alanine Aminotransferase (ALT/SGPT) 20 IU/L (0-55) Alkaline Phosphatase 70 IU/L (40-150) Creatine Kinase 76 IU/L (29-168) Creatine Kinase MB 2.30 ng/mL (0-5.0) Troponin I < 0.001 ng/mL (0-0.300) B-Type Natriuretic Peptide 36.6 pg/mL (0-100) Total Protein 6.5 g/dL (6.5-8.1) Albumin 3.5 g/dL (3.5-5.0) Globulin 3.0 g/dL (2.3-3.5) Albumin/Globulin Ratio 1.2 (0.8-2.0) Lab results reviewed: Yes Imaging Imaging results reviewed: Yes Procedures 12 Lead ECG Interpretation ECG Interpretation : ECG: ECG 1 Curriculum Advisory Teacher: Interpreted by ED physician Date: Jan 05, 2020 Time: 16:05 Rhythm: sinus rhythm Rate: normal (68) QRS axis: normal ST segments normal: Yes T waves normal: Yes Clinical Impression: normal ECG Assessment & Plan Medical Decision Making MDM COUGH, SOB - CHECK CBC, CHEM, CXR, COVID, ECG, CARDIAC ENZYMES - R/O STEMI/NSTEMI, PNEUMONIA, COVID Reassessment Reassessment DC HOME, F/U PCP TUESDAY, SELF-QUARANTINE, Z-PACK, RTED PRN Assessment & Plan Final Impression: (1) Bronchitis Depart Disposition: HOME, SELF-CARE Last Vital Signs Date Time Temp Pulse Resp B/P (MAP) Pulse Ox O2 Delivery O2 Flow Rate FiO2 01/05/20 19:04 79 20 127/90 99 Nasal Cannula 0.5 01/05/20 15:58 98.7 Home Meds Reported Medications Losartan Potassium (LOSARTAN POTASSIUM) 25 Mg Tablet, for 30 Days, #30 11/21/18 Cefuroxime Axetil (CEFUROXIME) 250 Mg Tablet, 250 MG PO Q12H, #10 TAB 11/21/18 Hydrocodone Bit/Acetaminophen (HYDROCODON-ACETAMINOPHN 10-325) 1 Each Tablet, 1 TAB PO QID PRN for MODERATE PAIN (4-6) 11/19/18 Levothyroxine Sodium (LEVOTHYROXINE SODIUM) 100 Mcg Tablet, 50 MCG PO DAILY 11/19/18 Cyclobenzaprine Hcl (CYCLOBENZAPRINE HCL) 10 Mg Tablet, 10 MG PO TID PRN for MU SCLE SPASMS 11/19/18 Gabapentin (GABAPENTIN) 400 Mg Capsule, 400 MG PO TID 11/19/18 SKINNY VANEGAS MD Jan 05, 2020 19:31
== END 2020-01-05 19:45 | disposition home or self-care (01) ==
LOC: ER 15:50
DX: J40 Bronchitis, not specified as acute or chronic (principal); R05 Cough; R06.02 Shortness of breath; I10 Essential (primary) hypertension; E03.9 Hypothyroidism, unspecified
CPT/HCPCS: 36415; 71045; 80053; 81001; 82550; 82553; 83880; 84484; 85025; 85610; 85730; 93005; 99284; U0002

== ENCOUNTER → 2020-01-18 | Outpatient (CLI) | payer MEDICARE, BC, OTHER ==
--- NOTE | 2020-01-18 13:00 | Diagnostic Imaging Report ---
TECHNIQUE: Magnetic resonance imaging of the RIGHT KNEE was performed WITHOUT injected contrast. HISTORY: Medial right knee pain, right knee medial meniscus tear COMPARISON: None available. FINDINGS: LIGAMENTS AND TENDONS: ACL: Intact PCL: Intact Collateral ligaments: Intact Iliotibial band: Unremarkable Popliteal tendon: Intact Extensor mechanism: Intact Increased intrasubstance signal at the insertion of the semimembranosus tendon without discrete tear. JOINT: Menisci: Medial: Complex tear at the body of the medial meniscus with horizontal undersurface component extending along the anterior and posterior horns. Lateral: Tear along the free margin at the posterior horn of the lateral meniscus. Articular Cartilage: Medial Compartment: Diffuse high-grade/near full-thickness cartilage loss along the weightbearing medial femoral condyle and medial tibial plateau. Lateral Compartment: Diffuse low-grade cartilage loss along the weightbearing lateral femoral condyle and lateral tibial plateau. Patellofemoral Compartment: Scattered low-grade cartilage fissuring along the patellar cartilage. Diffuse thinning along the trochlear cartilage with focal high-grade fissuring near the midline trochlear groove. Joint Fluid: Small joint effusion with synovitis and possible subcentimeter loose bodies in the suprapatellar joint recess. Tiny Rojas's cyst with fluid tracking along the superficial fascia of the medial head of the gastrocnemius. BONE: No fractures or acute osseous abnormality. No infiltrative bone marrow replacing abnormalities. Mild subchondral bone marrow edema along the periphery of the medial femoral condyle and medial tibial plateau, likely related to overlying cartilage degeneration. SOFT TISSUES: Otherwise, unremarkable. IMPRESSION: 1. Complex tear at the body of the medial meniscus with horizontal component extending along the anterior and posterior horns. Associated advanced degenerative changes of the medial compartment with diffuse high-grade/near full-thickness cartilage loss. 2. Additional mild cartilage degeneration of the patellofemoral and lateral compartments. Associated small tear along the free margin at the posterior horn of the lateral meniscus. 3. Mild tendinosis at the insertion of the semimembranosus tendon without discrete tear. 4. Small joint effusion with synovitis and possible loose bodies. 5. Tiny Rojas's cyst with fluid tracking along the superficial fascia of the gastrocnemius muscle, favored to represent ruptured Rojas's cyst and less likely injury of the gastrocnemius muscle. Signed by: Silvio Jarvis MD on 01/18/2020 12:57 PM
== END ==
LOC: MRI 10:37
PROVIDERS: ATTEND Specialist
DX: S83.241A Other tear of medial meniscus, current injury, right knee, initial encounter (principal)

== ENCOUNTER → 2020-01-30 | Day surgery (SDC) | payer MEDICARE, BC, OTHER ==
[2020-01-25 11:17] LABS: BASOPHILS % 0.2 % (0.0-1.0); EOSINOPHILS # (AUTO) 0.4 (0.0-0.4); EOSINOPHILS % 3.6 % (0.0-6.0); HEMATOCRIT 37.9 % (34.2-44.1); HEMOGLOBIN 11.9 g/dL (12.0-16.0); LYMPHOCYTES # (AUTO) 4.3 (1.0-3.2); LYMPHOCYTES % 38.8 % (18.0-39.1); MEAN CORPUSCULAR HEMOGLOBIN 29.6 pg (28-32); MEAN CORPUSCULAR HGB CONC 31.4 g/dL (31-35); MEAN CORPUSCULAR VOLUME 94.3 fL (81-99); MONOCYTES % 8.5 % (4.4-11.3); NEUTROPHILS % 45.1 % (38.7-80.0); PLATELET COUNT 296 x10e3/uL (140-360); RED BLOOD COUNT 4.02 x10e6/uL (3.6-5.1); RED CELL DISTRIBUTION WIDTH 14.6 % (11.7-14.4)
--- NOTE | 2020-01-25 11:21 | Diagnostic Imaging Report ---
EXAM: CHEST 2 VIEWS DATE: 01/25/2020 11:00 AM INDICATION: Preoperative evaluation COMPARISON: 01/05/2020 FINDINGS: The trachea is midline. The lungs are symmetrically expanded without evidence of focal consolidation, pneumothorax, or significant pleural effusion. The cardiomediastinal silhouette is stable in appearance. Partially visualized cervical fusion hardware noted. Additionally, metallic anchors again noted within the left proximal humerus. No acute osseous abnormality is identified. IMPRESSION: No acute cardiopulmonary process identified. Signed by: Dr. Naveen Mitchell MD on 01/25/2020 11:17 AM
[~2020-01-30] MED LIST changes: +ANTI DEPRESSANT; +BUPIVACAINE 0.5%/EPI 30 ML SDV INJ ONE; +CEFAZOLIN SOD 1 GM/NS 50ML 100 ML IV ONE; +CYMBALTA30 MG; +DEXAMETHASONE SOD PHOS INJ 4 MG/ML VIAL ONE; +FENTANYL CITRATE/PF 100MCG/2 ML INJ ONE; +LIDOCAINE HCL 2% LOCAL INJ 5 ML SDV VIAL INJ ONE; +MELOXICAM7.5 MG PO; +MIDAZOLAM HCL 2 MG/2 ML VIAL ONE; +ONDANSETRON HCL INJ 2MG/ML 2ML 2 MG/ML VIAL ONE; +PRISTIQ25 MG; +PROPOFOL IV EMULSION 10 MG/ML 20 ML VIAL ONE; +SEVOFLURANE INHAL SOLN 250 ML PEN BTL ONE; +VICODIN HP 10-1 EAC1
[2020-01-30 13:10] VITALS: BP 118/77
--- NOTE | 2020-02-02 19:38 | Operative Report ---
DATE OF PROCEDURE: 01/30/2020 SURGEON: Clark Collazo MD PREOPERATIVE DIAGNOSES: Right knee medial meniscus tear and right knee degenerative joint disease of the knee. 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 OPERATIONS AND PROCEDURES PERFORMED: The patient underwent a right knee examination under anesthesia, right knee arthroscopy, right knee removal of multiple intra-articular loose bodies, right knee partial medial meniscectomy, right knee partial lateral meniscectomy, right knee chondroplasty of the patella, the trochlea, the medial femoral condyle, the medial tibial plateau, the lateral femoral condyle, and lateral tibial plateau. BATCH TESTER: No talent acquisition assistant. ANESTHESIA: General endotracheal intubation anesthesia. IV FLUIDS: As per the Anesthesia record. BRIEF DESCRIPTION OF THE PATIENT'S OPERATIVE PROCEDURE: Ms. Murry was taken to the operating room and placed in supine position on the operating table. Following induction of general anesthesia as well as endotracheal intubation, the patient's right lower extremity was examined under anesthesia. She was found to have a mild effusion within the knee joint, but otherwise ligamentously stable knee. The patient's lower extremity was prepped and draped in standard surgical fashion. A two-port technique was used to provide this patient's arthroscopic evaluation of the knee joint. Examination of the suprapatellar pouch, medial and lateral gutters found evidence of multiple floating loose bodies. There was also chondromalacia of the patella and trochlea. The shaver was placed in the knee joint and the multiple loose bodies were removed at this time. The scope was then advanced to the medial compartment. Examination of the medial compartment demonstrated a torn medial meniscus. There was also a chondromalacia of the articulating surfaces. There were also loose bodies within the medial compartment. A combination of biting forceps and motorized shaver were used to resect the torn portion of meniscus. Chondroplasties of the medial femoral condyle and medial tibial plateau were performed at this time. The loose bodies were removed with a shaver. The scope was then advanced to the intercondylar notch and the anterior cruciate ligament was identified and found to be intact. Scope was then advanced to lateral compartment and a lateral meniscus tear was identified. There was also a chondromalacia of the articulating surfaces. A combination of biting forceps and a motorized shaver were used to resect the torn portion of the lateral meniscus. Chondroplasties of the lateral femoral condyle and lateral tibial plateau were performed at this time. Scope was then placed in suprapatellar fracture and chondroplasties of the patellar and trochlear were performed. The knee was deflated with sterile normal saline. Each of the portal sites were closed using 4-0 nylon suture. The portal sites as well as knee itself were injected with 0.5% Marcaine with epinephrine. Sterile dressings were applied. The patient was awakened and taken to postanesthesia care unit in stable condition. MD SYL Palma/MIGUELINA /[id number]
== END | disposition home or self-care (01) ==
LOC: OR 08:00
PROVIDERS: ATTEND Specialist
DX: S83.221A Peripheral tear of medial meniscus, current injury, right knee, initial encounter (principal); S83.281A Other tear of lateral meniscus, current injury, right knee, initial encounter; M17.11 Unilateral primary osteoarthritis, right knee; M22.41 Chondromalacia patellae, right knee; M54.9 Dorsalgia, unspecified; M54.2 Cervicalgia; I10 Essential (primary) hypertension; E03.9 Hypothyroidism, unspecified; J40 Bronchitis, not specified as acute or chronic; F32.9 Major depressive disorder, single episode, unspecified; X58.XXXA Exposure to other specified factors, initial encounter; Z01.810 Encounter for preprocedural cardiovascular examination; Z01.812 Encounter for preprocedural laboratory examination; Z01.818 Encounter for other preprocedural examination; Z11.59 Encounter for screening for other viral diseases; Z87.01 Personal history of pneumonia (recurrent); Z86.69 Personal history of other diseases of the nervous system and sense organs
CPT/HCPCS: 29880; 36415; 71046; 85025; 93005; J0690; J1100; J2001; J2250; J2405; J2704; J3010; U0002

== ENCOUNTER → 2020-04-14 | Outpatient (CLI) | payer MEDICARE, BC ==
[~2020-04-14] MED LIST changes: -BUPIVACAINE 0.5%/EPI 30 ML SDV INJ ONE; -CEFAZOLIN SOD 1 GM/NS 50ML 100 ML IV ONE; -DEXAMETHASONE SOD PHOS INJ 4 MG/ML VIAL ONE; -FENTANYL CITRATE/PF 100MCG/2 ML INJ ONE; -LIDOCAINE HCL 2% LOCAL INJ 5 ML SDV VIAL INJ ONE; -MIDAZOLAM HCL 2 MG/2 ML VIAL ONE; -ONDANSETRON HCL INJ 2MG/ML 2ML 2 MG/ML VIAL ONE; -PROPOFOL IV EMULSION 10 MG/ML 20 ML VIAL ONE; -SEVOFLURANE INHAL SOLN 250 ML PEN BTL ONE
--- NOTE | 2020-04-14 11:47 | Diagnostic Imaging Report ---
History: Dementia Comparison studies: Head CTs of 11/19/2018 and 06/23/2009. Technique: Precontrast: Hi resolution Sag T1 with coronal and axial reformats. Axial DWI, T2, T2 flair, gradient echo or SWI Intravenous contrast: None. Findings: Limitations: Magnetic susceptibility artifact from metallic hardware in the oral cavity results in distortion on the DWI sequence. The axial T2 sequence is also somewhat limited by artifacts related to patient motion. Structural lesions: No intra-or extra-axial masses. No hematomas. Atrophy: General: Mild symmetric volume loss Focal: No signal disproportionate lobar, hippocampal, mesencephalic, pontine, or cerebellar atrophy. Fan matter: Cortex: No signal abnormalities. No encephalomalacia. Basal ganglia: No atrophy or signal abnormalities. Thalami: No signal abnormalities. White matter signal intensity: Small T2 FLAIR hyperintensity which may reflect nonspecific clear cysts along the posterior right superior frontal gyrus posteriorly of doubtful clinical significance. No other signal abnormalities. Micro hemorrhages: None. Extra axial spaces: No signal abnormalities. Ventricles: Normal in size and configuration. No hydrocephalus. Other: Skull: No bone marrow abnormalities. Vessels: Expected flow voids present in the major arteries and dural sinuses.. Sella: Normal in size. No intra-or suprasellar abnormalities. Cranio-cervical junction: No abnormalities. Patent foramen magnum. No Chiari one malformation. Paranasal sinuses:No T2 hyperintense mucosal thickening. Mastoid air cells: Mild T2 hyperintense mucosal thickening or small effusion at the right mastoid tip. No signal rise in the left. IMPRESSION: Mild generalized parenchymal volume loss. No significant focal disproportionate lobar or hippocampal atrophy or other significant intracranial abnormalities. Signed by: Dr. Doc Francois M.D. on 04/14/2020 11:44 AM
== END ==
LOC: MRI 07:19
PROVIDERS: ATTEND Internal Medicine
DX: G31.09 Other frontotemporal neurocognitive disorder (principal)
CPT/HCPCS: 70551

== ENCOUNTER → 2020-08-12 | Outpatient (CLI) | payer MEDICARE, BC | LOC: MRI 12:59 | PROVIDERS: ATTEND Internal Medicine | DX: M17.11 Unilateral primary osteoarthritis, right knee (principal); S83.241A Other tear of medial meniscus, current injury, right knee, initial encounter ==

== ENCOUNTER 2020-09-10 09:39 | Emergency (ER) | payer MEDICARE, BC ==
[~2020-09-10] VITALS: Ht 147.3 cm; Wt 68.9 kg
[2020-09-10 11:15] VITALS: BP 98/58
== END 2020-09-10 11:18 | disposition home or self-care (01) ==
LOC: ER 09:47
DX: R51.9 Headache, unspecified (principal); I10 Essential (primary) hypertension; E03.9 Hypothyroidism, unspecified; G62.9 Polyneuropathy, unspecified
CPT/HCPCS: 70450; 99283

== ENCOUNTER 2022-01-28 14:11 | Inpatient (IN) | payer MEDICARE, BC ==
[~2022-01-28] VITALS: Ht 147.3 cm; Wt 55.3 kg
[2022-01-28 14:39] LABS: BASOPHILS # (AUTO) 0.1 (0.0-0.1); BASOPHILS % 0.9 % (0.0-1.0); EOSINOPHILS # (AUTO) 0.2 (0.0-0.4); EOSINOPHILS % 2.7 % (0.0-6.0); HEMATOCRIT 33.9 % (34.2-44.1); HEMOGLOBIN 10.5 g/dL (12.0-16.0); LYMPHOCYTES # (AUTO) 1.4 (1.0-3.2); LYMPHOCYTES % 25.2 % (18.0-39.1); MEAN CORPUSCULAR HEMOGLOBIN 28.7 pg (28-32); MEAN CORPUSCULAR VOLUME 92.6 fL (81-99); MONOCYTES # (AUTO) 0.5 (0.2-0.8); MONOCYTES % 8.9 % (4.4-11.3); NEUTROPHILS # (AUTO) 3.5 (2.1-6.9); NEUTROPHILS % 62.1 % (38.7-80.0); PLATELET COUNT 301 x10e3/uL (140-360); RED BLOOD COUNT 3.66 x10e6/uL (3.6-5.1); RED CELL DISTRIBUTION WIDTH 13.3 % (11.7-14.4)
[2022-01-28 14:56] LABS: INR 0.95; PROTHROMBIN TIME 13.5 seconds (11.9-14.5)
[2022-01-28 14:57] LABS: PARTIAL THROMBOPLASTIN TIME 28.4 seconds (23.8-35.5)
[2022-01-28 15:04] LABS: ALBUMIN 3.5 g/dL (3.5-5.0); ALBUMIN/GLOBULIN RATIO 1.1 (0.8-2.0); ANION GAP 12.2 mmol/L (8-16); CALCIUM 8.9 mg/dL (8.4-10.2); CREATININE, SERUM 0.79 mg/dL (0.57-1.11); POTASSIUM 4.2 mmol/L (3.5-5.1)
[2022-01-28 15:09] LABS: CREATINE KINASE MB 1.7 ng/mL (0-5.0)
[2022-01-28] MEDS ORDERED: ONDANSETRON HCL INJ 2MG/ML 2ML 2 MG/ML VIAL IV STA (17:40)
[2022-01-28] MEDS ORDERED: Morphine 4mg INJECTION 4 MG/ML INJ IV ONE (17:45)
[2022-01-28] MEDS ORDERED: SODIUM CHLORIDE 0.9% 1000ML 1,000 ML ONE (18:04)
[2022-01-28] MEDS: SODIUM CHLORIDE 0.9% 1000ML 1,000 ML IV SCH (18:13)
[2022-01-28] MEDS ORDERED: Morphine 4mg INJECTION 4 MG/ML INJ IV PRN (18:15)
[2022-01-28 20:00] VITALS: BP 115/78
[2022-01-28] MEDS: ONDANSETRON HCL INJ 2MG/ML 2ML 2 MG/ML VIAL IV PRN (21:58)
[2022-01-28 22:15] VITALS: BP 118/75
[2022-01-28 22:26] VITALS: BP 118/75
[2022-01-28] MEDS: HYDROMORPHONE 2MG/ML 2 MG/ML ML IV PRN (23:37)
[2022-01-29] VITALS (8 sets, daily range): BP systolic 116–158; BP diastolic 69–89
[2022-01-29] MEDS: ONDANSETRON HCL INJ 2MG/ML 2ML 2 MG/ML VIAL IV PRN ×5 (04:36→23:46)
[2022-01-29] MEDS: HYDROMORPHONE 2MG/ML 2 MG/ML ML IV PRN ×5 (04:39→23:46)
[2022-01-29 06:00] LABS: BASOPHILS % 0.7 % (0.0-1.0); EOSINOPHILS # (AUTO) 0.1 (0.0-0.4); EOSINOPHILS % 1.9 % (0.0-6.0); HEMOGLOBIN 9.7 g/dL (12.0-16.0); LYMPHOCYTES # (AUTO) 1.2 (1.0-3.2); LYMPHOCYTES % 19.5 % (18.0-39.1); MEAN CORPUSCULAR HEMOGLOBIN 28.5 pg (28-32); MEAN CORPUSCULAR HGB CONC 32.3 g/dL (31-35); MEAN CORPUSCULAR VOLUME 88.2 fL (81-99); MONOCYTES # (AUTO) 0.6 (0.2-0.8); MONOCYTES % 10.2 % (4.4-11.3); NEUTROPHILS % 67.2 % (38.7-80.0); PLATELET COUNT 257 x10e3/uL (140-360); RED CELL DISTRIBUTION WIDTH 13.2 % (11.7-14.4)
[2022-01-29 06:14] LABS: INR 0.95; PARTIAL THROMBOPLASTIN TIME 29.7 seconds (23.8-35.5); PROTHROMBIN TIME 13.5 seconds (11.9-14.5)
[2022-01-29 06:23] LABS: ALBUMIN 3.4 g/dL (3.5-5.0); ALBUMIN/GLOBULIN RATIO 1.3 (0.8-2.0); ANION GAP 11.9 mmol/L (8-16); CALCIUM 8.3 mg/dL (8.4-10.2); CREATININE, SERUM 0.66 mg/dL (0.57-1.11); POTASSIUM 3.9 mmol/L (3.5-5.1)
[2022-01-29] MEDS: SODIUM CHLORIDE 0.9% 1000ML 1,000 ML IV SCH ×3 (06:29→23:54)
[2022-01-29 10:41] LABS: FREE THYROXINE INDEX 1.9831 (1.4-3.8); THYROID STIMULATING HORMONE 3.469 uIU/mL (0.350-4.940)
[2022-01-29] MEDS ORDERED: ACETAMINOPHEN 1000 MG/100 ML IV ONE (14:04)
[2022-01-29] MEDS ORDERED: POVIDONE IODINE 0.05% 0.05 % ML PO ONE (14:04)
[2022-01-29] MEDS ORDERED: ONDANSETRON HCL INJ 2MG/ML 2ML 2 MG/ML VIAL ONE (14:04)
[2022-01-29] MEDS ORDERED: SEVOFLURANE INHAL SOLN 250 ML PEN BTL ONE (14:04)
[2022-01-29] MEDS ORDERED: DEXAMETHASONE SOD PHOS INJ 4 MG/ML SDV ONE (14:04)
[2022-01-29] MEDS ORDERED: FENTANYL CITRATE/PF 100MCG/2 ML INJ ONE (14:44)
[2022-01-29] MEDS ORDERED: MIDAZOLAM HCL 2 MG/2 ML VIAL ONE (14:44)
[2022-01-29] MEDS ORDERED: BUPIVACAINE HCL 0.25% 10ML MPF VIAL INJ ONE (16:23)
[2022-01-29] MEDS ORDERED: Vancomycin IV 500 MG ONE (16:24)
[2022-01-29] MEDS ORDERED: HYDROGEN PEROXIDE 120 ML BTL ONE (16:35)
[2022-01-29] MEDS ORDERED: Vancomycin IV 1 GM in SODIUM CHLORIDE 0.9% 250ML 250 ML IV ONE (17:30)
[2022-01-30] VITALS (7 sets, daily range): BP systolic 116–161; BP diastolic 64–87
[2022-01-30] MEDS: ONDANSETRON HCL INJ 2MG/ML 2ML 2 MG/ML VIAL IV PRN ×4 (03:48→23:39)
[2022-01-30] MEDS: HYDROMORPHONE 2MG/ML 2 MG/ML ML IV PRN ×5 (03:49→20:34)
[2022-01-30 06:14] LABS: BASOPHILS % 0.5 % (0.0-1.0); HEMATOCRIT 28.2 % (34.2-44.1); HEMOGLOBIN 8.9 g/dL (12.0-16.0); LYMPHOCYTES # (AUTO) 0.8 (1.0-3.2); LYMPHOCYTES % 9.8 % (18.0-39.1); MEAN CORPUSCULAR HEMOGLOBIN 28.3 pg (28-32); MEAN CORPUSCULAR HGB CONC 31.6 g/dL (31-35); MEAN CORPUSCULAR VOLUME 89.5 fL (81-99); MONOCYTES # (AUTO) 0.8 (0.2-0.8); MONOCYTES % 10.5 % (4.4-11.3); NEUTROPHILS # (AUTO) 6.2 (2.1-6.9); NEUTROPHILS % 78.9 % (38.7-80.0); PLATELET COUNT 271 x10e3/uL (140-360); RED BLOOD COUNT 3.15 x10e6/uL (3.6-5.1); RED CELL DISTRIBUTION WIDTH 12.6 % (11.7-14.4)
[2022-01-30 06:40] LABS: ANION GAP 13.9 mmol/L (8-16); CALCIUM 8.4 mg/dL (8.4-10.2); CREATININE, SERUM 0.65 mg/dL (0.57-1.11); POTASSIUM 3.9 mmol/L (3.5-5.1)
[2022-01-30] MEDS: HYDROCODONE/APAP 10MG-325MG TAB PO PRN ×2 (07:14→13:51)
[2022-01-30] MEDS: ASPIRIN 81 MG CHEW TAB PO SCH (09:00)
[2022-01-30] MEDS: SODIUM CHLORIDE 0.9% 1000ML 1,000 ML IV SCH ×2 (12:12→20:15)
[2022-01-30] MEDS: KETOROLAC TROMETHAMINE 30 MG/ML VIAL IV PRN ×2 (12:51→18:59)
[2022-01-30] MEDS: LEVOFLOXACIN 750MG/D5W 150ML 150 ML IV SCH (21:19)
[2022-01-31] MEDS: HYDROCODONE/APAP 10MG-325MG TAB PO PRN ×4 (00:11→20:56)
[2022-01-31] MEDS: KETOROLAC TROMETHAMINE 30 MG/ML VIAL IV PRN ×3 (02:27→19:15)
[2022-01-31] MEDS: HYDROMORPHONE 2MG/ML 2 MG/ML ML IV PRN ×2 (05:13→09:37)
[2022-01-31] MEDS: ONDANSETRON HCL INJ 2MG/ML 2ML 2 MG/ML VIAL IV PRN (05:13)
[2022-01-31] MEDS: SODIUM CHLORIDE 0.9% 1000ML 1,000 ML IV SCH (05:13)
[2022-01-31 05:21] LABS: BASOPHILS % 0.3 % (0.0-1.0); EOSINOPHILS # (AUTO) 0.1 (0.0-0.4); EOSINOPHILS % 1.6 % (0.0-6.0); HEMATOCRIT 31.2 % (34.2-44.1); LYMPHOCYTES # (AUTO) 0.8 (1.0-3.2); LYMPHOCYTES % 12.5 % (18.0-39.1); MEAN CORPUSCULAR HEMOGLOBIN 28.2 pg (28-32); MEAN CORPUSCULAR HGB CONC 32.1 g/dL (31-35); MEAN CORPUSCULAR VOLUME 88.1 fL (81-99); MONOCYTES # (AUTO) 0.7 (0.2-0.8); MONOCYTES % 10.4 % (4.4-11.3); NEUTROPHILS % 74.9 % (38.7-80.0); PLATELET COUNT 271 x10e3/uL (140-360); RED BLOOD COUNT 3.54 x10e6/uL (3.6-5.1); RED CELL DISTRIBUTION WIDTH 12.5 % (11.7-14.4)
[2022-01-31 05:40] LABS: ALBUMIN 3.4 g/dL (3.5-5.0); ANION GAP 16.3 mmol/L (8-16); CALCIUM 8.8 mg/dL (8.4-10.2); CREATININE, SERUM 0.59 mg/dL (0.57-1.11); MAGNESIUM 1.4 MG/DL (1.3-2.1); POTASSIUM 3.3 mmol/L (3.5-5.1)
[2022-01-31 07:50] VITALS: BP 142/74
[2022-01-31 08:00] VITALS: BP 142/74
[2022-01-31 08:02] LABS: CLARITY,URINE CLEAR (CLEAR); COLOR,URINE YELLOW (YELLOW); KETONES,URINE 1+ (NEGATIVE); LEUKOCYTE ESTERASE ,URINE NEGATIVE (NEGATIVE); NITRITE,URINE NEGATIVE (NEGATIVE); PROTEIN,URINE DIPSTICK NEGATIVE (NEGATIVE); URINE UROBILINOGEN 0.2 mg/dL (0.2 - 1)
[2022-01-31 08:19] LABS: BACTERIA,URINE RARE /HPF; EPITHELIAL CELLS,URINE RARE /LPF; RBC,URINE 0-5 /HPF (0-5); WBC,URINE (MAN) 0-5 /HPF (0-5); YEAST,URINE RARE
[2022-01-31] MEDS: DOCUSATE SODIUM 100 MG CAP PO SCH (08:55)
[2022-01-31] MEDS: SENNOSIDES 8.6 MG TAB PO SCH (08:56)
[2022-01-31] MEDS: ASPIRIN 81 MG CHEW TAB PO SCH (08:56)
[2022-01-31] MEDS ORDERED: TRAZODONE HCL100 MG PO (09:41)
[2022-01-31 11:30] VITALS: BP 144/68
[2022-01-31] MEDS: ALPRAZOLAM 0.5 MG TAB PO PRN ×2 (11:47→20:56)
[2022-01-31] MEDS: DULOXETINE HCL 30 MG DELAYED RELEASE PO SCH (11:47)
[2022-01-31] MEDS: SODIUM FERRIC GLUCONATE COMPLX 125 MG in SODIUM CHLORIDE 0.9% 100 ML IV SCH (11:49)
[2022-01-31 15:30] VITALS: BP 142/75
[2022-01-31] MEDS ORDERED: HYDROMORPHONE 2MG/ML 2 MG/ML ML IV PRN (15:30)
[2022-01-31] MEDS: GABAPENTIN 400 MG CAP PO SCH ×2 (16:00→20:56)
[2022-01-31 20:00] VITALS: BP 144/80
[2022-01-31] MEDS: LEVOFLOXACIN 750MG/D5W 150ML 150 ML IV SCH (20:56)
[2022-01-31 21:00] VITALS: BP 144/80
[2022-01-31] MEDS ORDERED: TRAZODONE HCL 50 MG TAB PO SCH (21:00)
[2022-02-01] MEDS: HYDROMORPHONE 1MG/1ML INJ IV PRN ×3 (01:37→15:48)
[2022-02-01] MEDS: ALPRAZOLAM 0.5 MG TAB PO PRN (02:32)
[2022-02-01 04:52] LABS: BASOPHILS % 0.5 % (0.0-1.0); EOSINOPHILS # (AUTO) 0.2 (0.0-0.4); EOSINOPHILS % 6.1 % (0.0-6.0); HEMATOCRIT 25.3 % (34.2-44.1); HEMOGLOBIN 8.5 g/dL (12.0-16.0); LYMPHOCYTES % 24.9 % (18.0-39.1); MEAN CORPUSCULAR HEMOGLOBIN 28.6 pg (28-32); MEAN CORPUSCULAR HGB CONC 33.6 g/dL (31-35); MEAN CORPUSCULAR VOLUME 85.2 fL (81-99); MONOCYTES # (AUTO) 0.6 (0.2-0.8); MONOCYTES % 15.5 % (4.4-11.3); NEUTROPHILS # (AUTO) 2.1 (2.1-6.9); NEUTROPHILS % 52.7 % (38.7-80.0); PLATELET COUNT 284 x10e3/uL (140-360); RED BLOOD COUNT 2.97 x10e6/uL (3.6-5.1)
[2022-02-01 04:58] LABS: ALBUMIN 2.8 g/dL (3.5-5.0); ANION GAP 15.2 mmol/L (8-16); CALCIUM 8.5 mg/dL (8.4-10.2); CREATININE, SERUM 0.56 mg/dL (0.57-1.11); MAGNESIUM 1.8 MG/DL (1.3-2.1); POTASSIUM 3.2 mmol/L (3.5-5.1)
[2022-02-01 05:23] LABS: FERRITIN 192.37 ng/mL (4.63-204.00)
[2022-02-01] MEDS ORDERED: LEVOTHYROXINE SODIUM 50 MCG TAB PO SCH (06:00)
[2022-02-01 08:03] VITALS: BP 142/78
[2022-02-01 08:05] VITALS: BP 142/78
[2022-02-01] MEDS: ASPIRIN 81 MG CHEW TAB PO SCH (08:58)
[2022-02-01] MEDS: SENNOSIDES 8.6 MG TAB PO SCH (08:58)
[2022-02-01] MEDS: GABAPENTIN 400 MG CAP PO SCH ×2 (08:58→15:00)
[2022-02-01] MEDS: DOCUSATE SODIUM 100 MG CAP PO SCH (08:58)
[2022-02-01] MEDS: SODIUM FERRIC GLUCONATE COMPLX 125 MG in SODIUM CHLORIDE 0.9% 100 ML IV SCH (08:58)
[2022-02-01] MEDS: DULOXETINE HCL 30 MG DELAYED RELEASE PO SCH (08:58)
[2022-02-01] MEDS: KETOROLAC TROMETHAMINE 30 MG/ML VIAL IV PRN (12:30)
[2022-02-01] MEDS ORDERED: ASPIRIN CHEW81 MG PO (15:01)
[2022-02-01] MEDS ORDERED: LEVOFLOXACIN250 MG PO (15:01)
[2022-02-01] MEDS ORDERED: TRAZODONE HCL100 MG PO (15:01)
[2022-02-01] MEDS ORDERED: HYDROCODON-ACE1 EAC9 PO (15:01)
[2022-02-01] MEDS ORDERED: ALPRAZOLAM0.5 MG PO (15:01)
[2022-02-01] MEDS: ONDANSETRON HCL INJ 2MG/ML 2ML 2 MG/ML VIAL IV PRN (15:48)
== END 2022-02-01 17:15 | disposition home or self-care (01) | DRG 492 ==
LOC: ER 14:31 → ERHOLD 18:08 → MED/SURG 21:48
PROC: 0QSG04Z Reposition Right Tibia with Internal Fixation Device, Open Approach (ICD-10-PCS; 2022-01-29)
PROC: 0QSJ04Z Reposition Right Fibula with Internal Fixation Device, Open Approach (ICD-10-PCS; principal; 2022-01-29 14:51)
DX: S82.851A Displaced trimalleolar fracture of right lower leg, initial encounter for closed fracture (principal); J18.9 Pneumonia, unspecified organism; R55 Syncope and collapse; J45.909 Unspecified asthma, uncomplicated; I10 Essential (primary) hypertension; E03.9 Hypothyroidism, unspecified; D50.9 Iron deficiency anemia, unspecified; G47.00 Insomnia, unspecified; W18.39XA Other fall on same level, initial encounter; Y93.89 Activity, other specified; Y92.018 Other place in single-family (private) house as the place of occurrence of the external cause; Z20.822 Contact with and (suspected) exposure to COVID-19; Z79.82 Long term (current) use of aspirin
CPT/HCPCS: 0223U; 36415; 70450; 71045; 76000; 80048; 80053; 81001; 82550; 82553; 82607; 82728; 83540; 83735; 84436; 84443; 84466; 84479; 84484; 85025; 85610; 85730; 86850; 86900; 93005; 93306; 93880; 94799; 99284; J1100; J1170; J1885; J2250; J2270; J2405; J2916; J3010; J3370; J7030; J7050

== ENCOUNTER → 2022-09-01 | Outpatient (CLI) | payer MEDICARE, BC ==
[~2022-09-01] MED LIST changes: +ALPRAZOLAM0.5 MG PO; +ASPIRIN CHEW81 MG PO; +LEVOFLOXACIN250 MG PO; +TRAZODONE HCL100 MG PO
== END ==
LOC: MRI 09:59
PROVIDERS: ATTEND Family Medicine
DX: S39.012S Strain of muscle, fascia and tendon of lower back, sequela (principal); M51.26 Other intervertebral disc displacement, lumbar region
CPT/HCPCS: 72148

== ENCOUNTER 2024-04-12 19:32 | Emergency (ER) | payer MEDICARE, BC ==
[~2024-04-12] VITALS: Ht 147.3 cm; Wt 53.1 kg
[~2024-04-12 19:32] MED LIST changes: +BUTRANS1 EACH TD; +CELEBREX200 MG PO; +GABAPENTIN600 MG PO; +PERCOCET 10-321 EACH PO; +VENLAFAXINE H37.5 M2 PO
[2024-04-12 19:37] VITALS: PULSE 58; RESP 18; TEMP 98.5
[2024-04-12 21:49] VITALS: BP 165/95; PULSE 59; RESP 18; TEMP 98.3; O2SAT 100
== END 2024-04-12 21:51 | disposition home or self-care (01) ==
LOC: ER 19:40
DX: S90.811A Abrasion, right foot, initial encounter (principal); M79.674 Pain in right toe(s); W20.8XXA Other cause of strike by thrown, projected or falling object, initial encounter; Y92.512 Supermarket, store or market as the place of occurrence of the external cause; I10 Essential (primary) hypertension; E03.9 Hypothyroidism, unspecified; D64.9 Anemia, unspecified; F41.9 Anxiety disorder, unspecified; M54.9 Dorsalgia, unspecified; G89.29 Other chronic pain
CPT/HCPCS: 99283